=== PATIENT | female | born 1945 | race Caucasian/White ===

== ENCOUNTER 2018-10-05 19:19 | Emergency (ER) | payer OTHER ==
[~2018-10-05] VITALS: Ht 160 cm; Wt 67.6 kg
[~2018-10-05 19:19] MED LIST: AMOX1TAB10 PO; CEPH500C PO; CITA10TA4 PO; DOXY100C2 PO; FLUT1DIS3 IN; HYDR-2761 PO; INSU100I11 SQ; OMEP20CA10 PO; PRAM0.5T5 PO
[2018-10-05 19:20] VITALS: BP 178/75
[2018-10-05] MEDS ORDERED: LACT20SO PO (20:14)
[2018-10-05] MEDS ORDERED: MIDAZOLAM HCL/PF 5 MG/5 ML VIAL. IM ONE (20:15)
--- NOTE | 2018-10-05 20:15 | PHYS DOC ---
Past Medical History Past Medical History: Asthma, Diabetes-Type II, GERD Additional Past Medical Histor: RLS,CHRONIC PAIN Past Surgical History: Hysterectomy, Tonsillectomy Additional Past Surgical Histo: RIGHT ANKLE WITH RODS AND PINS Alcohol Use: None Drug Use: None Adult General Chief Complaint Chief Complaint: CONSTIPATION HPI HPI Patient is a 73 year old female presenting with constipation last bowel was on Tuesday she feels a ball of stool in her rectum. Not on any pain medication she may be low bit dehydrated she tries to drink fluids. Pain is moderate and localized to the rectum worse with trying to have a bowel movement Review of Systems Review of Systems Constitutional: Denies fever or chills [] Respiratory: Denies cough or shortness of breath [] Cardiovascular: No additional information not addressed in HPI [] GI: Positive nausea no vomiting really no abdominal pain just rectal pain : Denies dysuria or hematuria [] Neurologic: Denies headache, focal weakness or sensory changes [] Endocrine: Denies polyuria or polydipsia [] All other systems were reviewed and found to be within normal limits, except as documented in this note. Current Medications Current Medications Current Medications Medications (Trade) Dose Ordered Sig/Steph Start Time Stop Time Status Last Admin Dose Admin Magnesium Citrate (Citroma) 296 ml 1X ONCE 10/05/18 22:00 10/05/18 22:01 DC Midazolam HCl (Versed) 2 mg STK-MED ONCE 10/05/18 20:18 10/05/18 20:19 DC Morphine Sulfate (Morphine Sulfate) 4 mg 1X ONCE 10/05/18 22:00 10/05/18 22:01 DC 10/05/18 22:09 4 MG Ondansetron HCl (Zofran Odt) 4 mg 1X ONCE 10/05/18 22:00 10/05/18 22:01 DC 10/05/18 22:09 4 MG Sodium Monofluorophosphate (Fleet Adult) 133 ml 1X ONCE 10/05/18 21:30 10/05/18 21:31 DC 10/05/18 21:15 133 ML Allergies Allergies Allergies Coded Allergies Type Severity Reaction Last Updated Verified Tetanus Vaccines and Toxoid Allergy Severe SWELLING 08/19/18 Yes wool Allergy Severe RASH 08/19/18 Yes peach Allergy Intermediate Rash 08/22/18 Yes Physical Exam Physical Exam Constitutional: Well developed, well nourished, no acute distress, non-toxic appearance. [] HENT: Normocephalic, atraumatic, bilateral external ears normal, oropharynx moist, no oral exudates, nose normal. [] Eyes: PERRLA, EOMI, conjunctiva normal, no discharge. [] Neck: Normal range of motion, no tenderness, supple, no stridor. [] Pulmonary: Normal respiratory effort no increased work of breathing no obvious chest wall trauma Abdomen: No peritoneal signs mild suprapubic tenderness Rectal exam there is a large rectal fecal impaction this dis impacted by me Skin: Warm, dry, no erythema, no rash. [] Back: No tenderness, no CVA tenderness. [] Neurologic: Alert and oriented X 3, normal motor function, normal sensory function, no focal deficits noted. [] Psychologic: Affect normal, judgement normal, mood normal. [] Current Patient Data Vital Signs Vital Signs Date Time Temp Pulse Resp B/P (MAP) Pulse Ox O2 Delivery O2 Flow Rate FiO2 10/05/18 22:09 99 Room Air 10/05/18 19:20 98.3 90 20 178/75 (109) 98.3 EKG EKG [] Radiology/Procedures Radiology/Procedures [] Course & Med Decision Making Course & Med Decision Making Pertinent Labs and Imaging studies reviewed. (See chart for details) []Rectal impaction status post disimpaction and enema in the emergency room. Gave her said patient tolerated the disimpaction with a moderate degree of difficulty. We then tried a fleets enema which ultimately was successful patient had a very large brown bowel movement lactulose for home encouraged prune juice hydration return as needed for any new or unanticiapated issues. recommended bp f/u one month Dragon Disclaimer Dragon Disclaimer This electronic medical record was generated, in whole or in part, using a voice recognition dictation system. Departure Departure Impression: Primary Impression: Fecal impaction Additional Impression: Elevated blood pressure reading Disposition: 01 HOME, SELF-CARE Condition: STABLE Referrals: HAMMAD VARGAS MD (PCP) Patient Instructions: Constipation, Adult Scripts Lactulose (LACTULOSE) 20 Gm/30 Ml Solution 20 GM PO BID PRN for CONSTIPATION, #1 BOT Prov: TRINIDAD WYATT MD 10/05/18 Problem Qualifiers TRINIDAD WYATT MD Oct 05, 2018 20:15
[2018-10-05] MEDS ORDERED: MIDAZOLAM HCL/PF 2 MG/2 ML VIAL. ONE (20:18)
[2018-10-05] MEDS ORDERED: SODIUM PHOSPHATES 19/7GM 133 ML ENEMA. PR ONE (21:30)
[2018-10-05] MEDS ORDERED: MAGNESIUM CITRATE 296 ML SOLUTION. PO ONE (22:00)
[2018-10-05] MEDS ORDERED: ONDANSETRON ODT 4 MG TAB.RAPDIS. PO ONE (22:00)
[2018-10-05] MEDS ORDERED: MORPHINE SULFATE 4 MG/ML VIAL. IM ONE (22:00)
[2018-10-14] MEDS ORDERED: CLON0.1T PO (10:24)
[2018-10-20] MEDS ORDERED: LINA5TAB PO (08:48)
[2018-11-18] MEDS ORDERED: ONDA4TAB7 PO (09:53)
== END 2018-10-05 22:45 | disposition home or self-care (01) ==
LOC: ER 19:19
DX: K56.41 Fecal impaction (principal); E86.0 Dehydration; R03.0 Elevated blood-pressure reading, without diagnosis of hypertension; J45.909 Unspecified asthma, uncomplicated; K21.9 Gastro-esophageal reflux disease without esophagitis; E11.9 Type 2 diabetes mellitus without complications; G89.29 Other chronic pain; G25.81 Restless legs syndrome; Z90.710 Acquired absence of both cervix and uterus; Z88.7 Allergy status to serum and vaccine; Z88.8 Allergy status to other drugs, medicaments and biological substances; Z91.018 Allergy to other foods
CPT/HCPCS: 96372; 99284; J2250; J2270; Q0162

== ENCOUNTER 2018-12-16 04:14 | Emergency (ER) | payer OTHER ==
[~2018-12-16] VITALS: Ht 152.4 cm; Wt 64.0 kg
[~2018-12-16 04:14] MED LIST changes: +CLON0.1T PO; +LACT20SO PO; +LINA5TAB PO; +ONDA4TAB7 PO
[2018-12-16 04:33] VITALS: BP 182/74
[2018-12-16] MEDS ORDERED: IV NORMAL SALINE 1000ML BAG 1,000 ML IV ONE (05:00)
[2018-12-16] MEDS ORDERED: KETOROLAC 15 MG/ML VIAL. IV ONE (05:00)
[2018-12-16 05:03] LABS: BASO # 0.1 x10^3/uL (0.0-0.2); BASO % 1 % (0-3); EOS # 0.1 x10^3/uL (0.0-0.7); EOS % 1 % (0-3); HEMATOCRIT 29.4 % (36.0-47.0); HEMOGLOBIN 9.4 g/dL (12.0-15.5); LYMPH # 2.3 x10^3/uL (1.0-4.8); LYMPH % 22 % (24-48); MEAN CORPUSCULAR HEMOGLOBIN 27 pg (25-35); MEAN CORPUSCULAR HGB CONC 32 g/dL (31-37); MEAN CORPUSCULAR VOLUME 84 fL (79-100); MONO # 0.6 x10^3/uL (0.0-1.1); MONO % 6 % (0-9); NEUT # 7.4 x10^3uL (1.8-7.7); NEUT % 71 % (31-73); PLATELET COUNT 200 x10^3/uL (140-400); RED BLOOD COUNT 3.51 x10^6/uL (3.50-5.40); RED CELL DISTRIBUTION WIDTH 16.9 % (11.5-14.5); WHITE BLOOD COUNT 10.4 x10^3/uL (4.0-11.0)
[2018-12-16 05:08] LABS: CALCIUM 9.7 mg/dL (8.5-10.1); CREATININE 2.4 mg/dL (0.6-1.0); GFR 19.8; POTASSIUM 5.1 mmol/L (3.5-5.1)
[2018-12-16 05:15] LABS: ALBUMIN 3.2 g/dL (3.4-5.0); ALBUMIN/GLOBULIN RATIO 0.6 (1.0-1.7); MAGNESIUM 2.2 mg/dL (1.8-2.4); TOTAL BILIRUBIN 0.2 mg/dL (0.2-1.0); TOTAL PROTEIN 8.7 g/dL (6.4-8.2)
--- NOTE | 2018-12-16 05:46 | PHYS DOC ---
Past Medical History Past Medical History: Asthma, Diabetes-Type I, GERD Additional Past Medical Histor: RLS,CHRONIC PAIN (MARLENE ESPARZA DO) Past Surgical History: Hysterectomy, Tonsillectomy Additional Past Surgical Histo: RIGHT ANKLE WITH RODS AND PINS, LRG BIG TOE SX (MARLENE ESPARZA DO) Smoking: Quit Greater Than 1 Year Alcohol Use: None Drug Use: None (MARLENE ESPARZA DO) Adult General Chief Complaint Chief Complaint: ABDOMINAL PAIN HPI HPI 73-year-old female presents via EMS with concern for obstruction/fecal impaction times one day. Patient reports she has had problems with constipation in the past. Reports has previously required surgical intervention. Or some associated nausea without vomiting. Reports associated lower abdominal pain. Denies fever or chills. Denies known trauma. (MARLENE ESPARZA DO) Review of Systems Review of Systems Constitutional: Denies fever or chills [] Eyes: Denies change in visual acuity, redness, or eye pain [] HENT: Denies nasal congestion or sore throat [] Respiratory: Denies cough or shortness of breath [] Cardiovascular: Denies chest pain or palpitations GI: Reports abdominal pain, constipation, and nausea; denies vomiting or diarrhea [] : Denies dysuria or hematuria [] Musculoskeletal: Denies back pain or joint pain [] Integument: Denies rash or skin lesions [] Neurologic: Denies headache, focal weakness or sensory changes [] Complete systems were reviewed and found to be within normal limits, except as documented in this note. (MARLENE ESPARZA DO) Current Medications Current Medications Current Medications Medications (Trade) Dose Ordered Sig/Steph Start Time Stop Time Status Last Admin Dose Admin Ceftriaxone Sodium (Rocephin) 1 gm 1X ONCE 12/16/18 07:00 12/16/18 07:01 Info (CONTRAST GIVEN -- Rx MONITORING) 1 each PRN DAILY PRN 12/16/18 06:00 12/18/18 05:59 Iohexol (Omnipaque 240 Mg/ml) 30 ml 1X ONCE 12/16/18 06:00 12/16/18 06:01 DC 12/16/18 06:04 30 ML Ketorolac Tromethamine (Toradol 15mg Vial) 10 mg 1X ONCE 12/16/18 05:00 12/16/18 05:01 DC 12/16/18 04:53 10 MG Sodium Chloride 1,000 ml @ 1,000 mls/hr 1X ONCE 12/16/18 05:00 12/16/18 05:59 DC 12/16/18 04:52 1,000 MLS/HR ([facility]) Allergies Allergies Allergies Coded Allergies Type Severity Reaction Last Updated Verified Tetanus Vaccines and Toxoid Allergy Severe SWELLING 08/19/18 Yes wool Allergy Severe RASH 08/19/18 Yes peach Allergy Intermediate Rash 08/22/18 Yes ([facility]) Physical Exam Physical Exam Constitutional: Well developed, well nourished, uncomfortable, non-toxic appearance. [] HENT: Normocephalic, atraumatic, oropharynx moist Eyes: Conjunctiva normal, no discharge. [] Neck: Normal range of motion, no tenderness, supple, no stridor. [] Cardiovascular: Heart rate regular rhythm, no murmur [] Lungs & Thorax: Bilateral breath sounds clear to auscultation [] Abdomen: Soft, lower abdominal pain on palpation Rectal: Chief I Dispatcher RN, digital rectal exam with large hard stool in rectal vault consistent for fecal impaction Skin: Warm, dry, no erythema, no rash. [] Back: No tenderness, no CVA tenderness. [] Extremities: No tenderness, ROM intact, no edema. [] Neurologic: Alert and oriented X 3, normal motor function, normal sensory function, no focal deficits noted. [] Psychologic: Affect normal, judgement normal, mood normal. [] (ESPARZA,MARLENE Haines DO) Current Patient Data Vital Signs Vital Signs Date Time Temp Pulse Resp B/P (MAP) Pulse Ox O2 Delivery O2 Flow Rate FiO2 12/16/18 04:33 98.1 99 14 182/74 (110) 97 Room Air 98.1 ([facility]) Lab Values Laboratory Tests Test 12/16/18 04:53 12/16/18 05:45 White Blood Count 10.4 x10^3/uL (4.0-11.0) Red Blood Count 3.51 x10^6/uL (3.50-5.40) Hemoglobin 9.4 g/dL (12.0-15.5) L Hematocrit 29.4 % (36.0-47.0) L Mean Corpuscular Volume 84 fL (79-100) Mean Corpuscular Hemoglobin 27 pg (25-35) Mean Corpuscular Hemoglobin Concent 32 g/dL (31-37) Red Cell Distribution Width 16.9 % (11.5-14.5) H Platelet Count 200 x10^3/uL (140-400) Neutrophils (%) (Auto) 71 % (31-73) Lymphocytes (%) (Auto) 22 % (24-48) L Monocytes (%) (Auto) 6 % (0-9) Eosinophils (%) (Auto) 1 % (0-3) Basophils (%) (Auto) 1 % (0-3) Neutrophils # (Auto) 7.4 x10^3uL (1.8-7.7) Lymphocytes # (Auto) 2.3 x10^3/uL (1.0-4.8) Monocytes # (Auto) 0.6 x10^3/uL (0.0-1.1) Eosinophils # (Auto) 0.1 x10^3/uL (0.0-0.7) Basophils # (Auto) 0.1 x10^3/uL (0.0-0.2) Sodium Level 140 mmol/L (136-145) Potassium Level 5.1 mmol/L (3.5-5.1) Chloride Level 103 mmol/L (98-107) Carbon Dioxide Level 28 mmol/L (21-32) Anion Gap 9 (6-14) Blood Urea Nitrogen 54 mg/dL (7-20) H Creatinine 2.4 mg/dL (0.6-1.0) H Estimated GFR (Cockcroft-Gault) 19.8 BUN/Creatinine Ratio 23 (6-20) H Glucose Level 280 mg/dL (70-99) H Calcium Level 9.7 mg/dL (8.5-10.1) Magnesium Level 2.2 mg/dL (1.8-2.4) Total Bilirubin 0.2 mg/dL (0.2-1.0) Aspartate Amino Transferase (AST) 18 U/L (15-37) Alanine Aminotransferase (ALT) 21 U/L (14-59) Alkaline Phosphatase 104 U/L (46-116) Total Protein 8.7 g/dL (6.4-8.2) H Albumin 3.2 g/dL (3.4-5.0) L Albumin/Globulin Ratio 0.6 (1.0-1.7) L Lipase 159 U/L (73-393) Urine Collection Type Unknown Urine Color Yellow Urine Clarity Cloudy Urine pH 6.0 Urine Specific [place] 1.015 Urine Protein Negative mg/dL (NEG-TRACE) Urine Glucose (UA) 250 mg/dL (NEG) Urine Ketones (Stick) Negative mg/dL (NEG) Urine Blood Trace (NEG) Urine Nitrite Positive (NEG) Urine Bilirubin Negative (NEG) Urine Urobilinogen Dipstick 0.2 mg/dL (0.2 mg/dL) Urine Leukocyte Esterase Moderate (NEG) Urine RBC 3-5 /HPF (0-2) Urine WBC >40 /HPF (0-4) Urine Squamous Epithelial Cells Many /LPF Urine Bacteria Many /HPF (0-FEW) Urine Mucus Slight /LPF Laboratory Tests 12/16/18 04:53 Laboratory Tests 12/16/18 04:53 (GUERLINE CHRISTIANSON DO) EKG EKG [] (MARLENE ESPARZA DO) Radiology/Procedures Radiology/Procedures [] (MARLENE ESPARZA DO) Radiology/Procedures EXAM: CT Abdomen and Pelvis without IV contrast CLINICAL HISTORY: lower abdominal pain, constipation COMPARISON: 10/13/2018, 08/19/2018 TECHNIQUE: Helical CT of the abdomen and pelvis without intravenous contrast. Axial, coronal and sagittal reformatted images were generated. PQRS compliance statement - One or more of the following individualized dose reduction techniques were utilized for this study: 1. Automated exposure control 2. Adjustment of the mA and/or kV according to patient size 3. Use of iterative reconstruction technique FINDINGS: Lack of intravenous contrast limits evaluation of solid organs, vasculature, and lymph nodes. Lower chest: Subpleural reticular opacities bilaterally likely scarring/atelectasis. Coronary artery calcifications are seen. Moderate hiatal hernia. Abdomen and Pelvis: No focal liver lesion. Gallbladder is mildly contracted but otherwise unremarkable. No biliary ductal dilatation. Spleen is unremarkable. Adrenals are normal.Pancreas is unremarkable. No focal renal lesion. No definite renal tract calculus. No hydronephrosis. No hydroureter. Bladder is moderately distended. Moderate colonic stool content is seen. The appendix is normal. No small or large bowel dilatation to suggest bowel obstruction. Dense aortobiiliac calcifications are seen. Bones: Height loss of the T12 vertebral body stable to 10/13/2018. IMPRESSION: 1. Moderate colonic stool content is seen. No evidence for bowel obstruction. 2. No evidence for acute appendicitis or acute cholecystitis. 3. Dense atherosclerotic calcifications of the aorta and main branches. 4. Moderate-sized hiatal hernia. (GUERLINE CHRISTIANSON DO) Course & Med Decision Making Course & Med Decision Making Patient presents with lower abdominal pain with history/concern for fecal impaction vs obstruction. Prior episodes required surgical intervention per patient. Abdomen tender but non-peritoneal. Rectal exam with large fecal impaction noted. Fecal disimpaction successfully performed. Labs obtained and posted to chart. Chronic renal insufficiency noted. UA with signs of infection. Empiric antibiotics given. IVF hydration given. CT abd/pelvis pending. Sign out given to Dr. Christianson for further evaluation and final disposition. Discussed current findings and plan with patient, who acknowledges understanding and agreement. (MARLEEN ESPARZA DO) Course & Med Decision Making Dr. Christianson's note Received patient at 6 AM, agree with previous H&P. On reevaluation at 6:30, patient feeling much better. CT results had been returned as noted above. Discussed findings and plan with patient who voiced understanding. All questions were answered. (GUERLINE CHRISTIANSON DO) Dragon Disclaimer Dragon Disclaimer This electronic medical record was generated, in whole or in part, using a voice recognition dictation system. (MARLENE ESPARZA DO) Departure Departure Impression: Primary Impression: Abdominal pain Additional Impressions: Fecal impaction Urinary tract infection Disposition: 01 HOME, SELF-CARE Condition: IMPROVED Referrals: HAMMAD VARGAS MD (PCP) Follow-up in 2 days Patient Instructions: Constipation, Adult Additional Instructions: Drink plenty of fluids. Increase fiber in your diet. One way to do this is eating plenty of fresh fruits and vegetables. Also eat a cereal with "bran" or "fiber" in the name. Take your medication as prescribed. Follow-up with your regular doctor in 2 business days. Return to the ER if worsening pain or any other concerns. Scripts Sulfamethoxazole/Trimethoprim (BACTRIM DS TABLET) 1 Each Tablet 1 TAB PO BID, #14 TAB Prov: GUERLINE CHRISTIANSON DO 12/16/18 Hyoscyamine Sulfate (LEVSIN) 0.125 Mg Tablet 0.125 MG PO QID, #30 TAB Prov: GUERLINE CHRISTIANSON DO 12/16/18 Lactulose (LACTULOSE) 20 Gm/30 Ml Solution 20 GM PO BID, #1 BOT Prov: LIBIAGUERLINE DO 12/16/18 Problem Qualifiers Primary Impression: Abdominal pain Abdominal location: lower abdomen, unspecified Qualified Codes: R10.30 - Lower abdominal pain, unspecified Additional Impressions: Urinary tract infection Urinary tract infection type: acute cystitis Hematuria presence: with hematuria Qualified Codes: N30.01 - Acute cystitis with hematuria MARLENE ESPARZA DO Dec 16, 2018 05:46 GUERLINE CHRISTIANSON DO Dec 16, 2018 06:37
[2018-12-16 05:51] LABS: BILIRUBIN,URINE NEGATIVE (NEG); CLARITY,URINE CLOUDY; COLOR,URINE YELLOW; NITRITE,URINE POSITIVE (NEG); PROTEIN,URINE NEGATIVE (NEG-TRACE); UROBILINOGEN,URINE 0.2 mg/dL (0.2 mg/dL)
[2018-12-16] MEDS ORDERED: IOHEXOL 240 MG/ML 50ML VIAL. PO ONE (06:00)
[2018-12-16] MEDS ORDERED: CONTRAST GIVEN. MC PRN (06:00)
[2018-12-16 06:11] LABS: BACTERIA,URINE MANY /HPF (0-FEW); SQUAMOUS EPITHELIAL CELL,UR MANY /LPF
[2018-12-16 06:12] LABS: WBC,URINE >40 /HPF (0-4)
--- NOTE | 2018-12-16 06:21 | RAD ---
EXAM: CT Abdomen and Pelvis without IV contrast CLINICAL HISTORY: lower abdominal pain, constipation COMPARISON: 10/13/2018, 08/19/2018 TECHNIQUE: Helical CT of the abdomen and pelvis without intravenous contrast. Axial, coronal and sagittal reformatted images were generated. PQRS compliance statement - One or more of the following individualized dose reduction techniques were utilized for this study: 1. Automated exposure control 2. Adjustment of the mA and/or kV according to patient size 3. Use of iterative reconstruction technique FINDINGS: Lack of intravenous contrast limits evaluation of solid organs, vasculature, and lymph nodes. Lower chest: Subpleural reticular opacities bilaterally likely scarring/atelectasis. Coronary artery calcifications are seen. Moderate hiatal hernia. Abdomen and Pelvis: No focal liver lesion. Gallbladder is mildly contracted but otherwise unremarkable. No biliary ductal dilatation. Spleen is unremarkable. Adrenals are normal.Pancreas is unremarkable. No focal renal lesion. No definite renal tract calculus. No hydronephrosis. No hydroureter. Bladder is moderately distended. Moderate colonic stool content is seen. The appendix is normal. No small or large bowel dilatation to suggest bowel obstruction. Dense aortobiiliac calcifications are seen. Bones: Height loss of the T12 vertebral body stable to 10/13/2018. IMPRESSION: 1. Moderate colonic stool content is seen. No evidence for bowel obstruction. 2. No evidence for acute appendicitis or acute cholecystitis. 3. Dense atherosclerotic calcifications of the aorta and main branches. 4. Moderate-sized hiatal hernia. Electronically signed by: Narendra Greer MD (12/16/2018 6:18 AM) [id number]
[2018-12-16] MEDS ORDERED: LACT20SO PO (06:37)
[2018-12-16] MEDS ORDERED: HYOS0.1264 PO (06:37)
[2018-12-16] MEDS ORDERED: SULF1TAB24 PO (06:37)
[2018-12-16] MEDS ORDERED: cefTRIAXone IV Push 1 GM VIAL. IVP ONE (07:00)
== END 2018-12-16 06:45 | disposition home or self-care (01) ==
LOC: ER 04:14
DX: K56.41 Fecal impaction (principal); N39.0 Urinary tract infection, site not specified; Z88.7 Allergy status to serum and vaccine; Z91.018 Allergy to other foods; Z91.048 Other nonmedicinal substance allergy status; J45.909 Unspecified asthma, uncomplicated; E10.9 Type 1 diabetes mellitus without complications; G89.29 Other chronic pain; K21.9 Gastro-esophageal reflux disease without esophagitis; Z87.891 Personal history of nicotine dependence; Z90.710 Acquired absence of both cervix and uterus
CPT/HCPCS: 36415; 74176; 80053; 81001; 83690; 83735; 85025; 87086; 99284; J1885; J7030; Q9966; 87186

== ENCOUNTER 2018-12-18 06:35 | Emergency (ER) | payer OTHER ==
[~2018-12-18] VITALS: Ht 152.4 cm; Wt 64.0 kg
[~2018-12-18 06:35] MED LIST changes: +HYOS0.1264 PO; +SULF1TAB24 PO
[2018-12-18 07:18] LABS: BASO % 1 % (0-3); CALCIUM 9.3 mg/dL (8.5-10.1); CREATININE 2.5 mg/dL (0.6-1.0); EOS # 0.1 x10^3/uL (0.0-0.7); EOS % 1 % (0-3); GFR 18.9; HEMATOCRIT 26.9 % (36.0-47.0); HEMOGLOBIN 8.4 g/dL (12.0-15.5); LYMPH # 2.8 x10^3/uL (1.0-4.8); LYMPH % 31 % (24-48); MEAN CORPUSCULAR HEMOGLOBIN 26 pg (25-35); MEAN CORPUSCULAR HGB CONC 31 g/dL (31-37); MEAN CORPUSCULAR VOLUME 84 fL (79-100); MONO # 0.5 x10^3/uL (0.0-1.1); MONO % 6 % (0-9); NEUT # 5.6 x10^3uL (1.8-7.7); NEUT % 62 % (31-73); PLATELET COUNT 192 x10^3/uL (140-400); POTASSIUM 4.6 mmol/L (3.5-5.1); RED BLOOD COUNT 3.22 x10^6/uL (3.50-5.40); RED CELL DISTRIBUTION WIDTH 16.4 % (11.5-14.5)
[2018-12-18 07:23] LABS: ALBUMIN 2.8 g/dL (3.4-5.0); ALBUMIN/GLOBULIN RATIO 0.6 (1.0-1.7); MAGNESIUM 2.1 mg/dL (1.8-2.4); TOTAL BILIRUBIN 0.2 mg/dL (0.2-1.0); TOTAL PROTEIN 7.6 g/dL (6.4-8.2)
--- NOTE | 2018-12-18 07:23 | EKG ---
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
--- NOTE | 2018-12-18 07:25 | PHYS DOC ---
Past Medical History Past Medical History: Asthma, Diabetes-Type I, GERD Additional Past Medical Histor: RLS,CHRONIC PAIN Past Surgical History: Hysterectomy, Tonsillectomy Additional Past Surgical Histo: RIGHT ANKLE WITH RODS AND PINS, LRG BIG TOE SX Alcohol Use: None Drug Use: None Adult General Chief Complaint Chief Complaint: NEAR SYNCOPE HPI HPI Patient is a 73 year old female who brought in by EMS because of syncopal episode. Patient states she had history of chronic constipation and her physician started a new laxative. Patient states she had a hard bowel movement this morning and does not remember what happened to her. Patient's called 911 because she lost her consciousness and had a fall with injury to her right forehead. Patient denies chest pain, shortness of breath, focal neuro deficit, nausea and vomiting. Patient complaining of pain in right side of her forehead and rated her pain 7/10. Patient states she had episodes of syncopal episode with constipation and taking laxative previously. Patient is allergic to tetanus vaccination. EMS reported that patient had blood pressure of 90s that gradually improved without IV fluid. Patient had blood sugar of 186 reports that by EMS. Review of Systems Review of Systems Constitutional: Denies fever or chills [] Eyes: Denies change in visual acuity, redness, or eye pain [] HENT: Denies nasal congestion or sore throat [] Respiratory: Denies cough or shortness of breath [] Cardiovascular: No additional information not addressed in HPI [] GI: Denies abdominal pain, nausea, vomiting, bloody stools or diarrhea, reports constipation [] : Denies dysuria or hematuria [] Musculoskeletal: Denies back pain or joint pain [] Integument: Denies rash or skin lesions [] Neurologic: Reports headache, denies focal weakness or sensory changes [] Endocrine: Denies polyuria or polydipsia [] All other systems were reviewed and found to be within normal limits, except as documented in this note. Current Medications Current Medications Current Medications Medications (Trade) Dose Ordered Sig/Steph Start Time Stop Time Status Last Admin Dose Admin Ciprofloxacin/ Dextrose 200 ml @ 200 mls/hr 1X ONCE 12/18/18 08:30 12/18/18 09:29 Allergies Allergies Allergies Coded Allergies Type Severity Reaction Last Updated Verified Tetanus Vaccines and Toxoid Allergy Severe SWELLING 08/19/18 Yes wool Allergy Severe RASH 08/19/18 Yes peach Allergy Intermediate Rash 08/22/18 Yes Physical Exam Physical Exam Constitutional: Well developed, well nourished, mild distress, non-toxic appearance. [] HENT: Normocephalic, right forehead contusion and hematoma 5 x 5 cm, bilateral external ears normal, oropharynx moist, no oral exudates, nose normal. [] Eyes: PERRLA, EOMI, conjunctiva normal, no discharge. [] Neck: Normal range of motion, no tenderness, supple, no stridor. [] Cardiovascular:Heart rate regular rhythm, no murmur [] Lungs & Thorax: Bilateral breath sounds clear to auscultation [] Abdomen: Bowel sounds normal, soft, no tenderness, no masses, no pulsatile masses. [] Skin: Warm, dry, no erythema, no rash. [] Back: No tenderness, no CVA tenderness. [] Extremities: No tenderness, no cyanosis, no clubbing, ROM intact, no edema. [] Neurologic: Alert and oriented X 3, normal motor function, normal sensory function, no focal deficits noted. [] Psychologic: Affect normal, judgement normal, mood normal. [] Current Patient Data Vital Signs Vital Signs Date Time Temp Pulse Resp B/P (MAP) Pulse Ox O2 Delivery O2 Flow Rate FiO2 12/18/18 06:37 97.6 97 20 129/63 (85) 100 Room Air 97.6 Lab Values Laboratory Tests Test 12/18/18 07:00 12/18/18 07:35 White Blood Count 9.0 x10^3/uL (4.0-11.0) Red Blood Count 3.22 x10^6/uL (3.50-5.40) L Hemoglobin 8.4 g/dL (12.0-15.5) L Hematocrit 26.9 % (36.0-47.0) L Mean Corpuscular Volume 84 fL (79-100) Mean Corpuscular Hemoglobin 26 pg (25-35) Mean Corpuscular Hemoglobin Concent 31 g/dL (31-37) Red Cell Distribution Width 16.4 % (11.5-14.5) H Platelet Count 192 x10^3/uL (140-400) Neutrophils (%) (Auto) 62 % (31-73) Lymphocytes (%) (Auto) 31 % (24-48) Monocytes (%) (Auto) 6 % (0-9) Eosinophils (%) (Auto) 1 % (0-3) Basophils (%) (Auto) 1 % (0-3) Neutrophils # (Auto) 5.6 x10^3uL (1.8-7.7) Lymphocytes # (Auto) 2.8 x10^3/uL (1.0-4.8) Monocytes # (Auto) 0.5 x10^3/uL (0.0-1.1) Eosinophils # (Auto) 0.1 x10^3/uL (0.0-0.7) Basophils # (Auto) 0.0 x10^3/uL (0.0-0.2) Sodium Level 145 mmol/L (136-145) Potassium Level 4.6 mmol/L (3.5-5.1) Chloride Level 105 mmol/L (98-107) Carbon Dioxide Level 27 mmol/L (21-32) Anion Gap 13 (6-14) Blood Urea Nitrogen 46 mg/dL (7-20) H Creatinine 2.5 mg/dL (0.6-1.0) H Estimated GFR (Cockcroft-Gault) 18.9 BUN/Creatinine Ratio 18 (6-20) Glucose Level 175 mg/dL (70-99) H Calcium Level 9.3 mg/dL (8.5-10.1) Magnesium Level 2.1 mg/dL (1.8-2.4) Total Bilirubin 0.2 mg/dL (0.2-1.0) Aspartate Amino Transferase (AST) 13 U/L (15-37) L Alanine Aminotransferase (ALT) 15 U/L (14-59) Alkaline Phosphatase 86 U/L (46-116) Troponin I Quantitative < 0.017 ng/mL (0.000-0.055) Total Protein 7.6 g/dL (6.4-8.2) Albumin 2.8 g/dL (3.4-5.0) L Albumin/Globulin Ratio 0.6 (1.0-1.7) L Urine Collection Type U cath Urine Color Yellow Urine Clarity Clear Urine pH 6.5 Urine Specific [place] 1.015 Urine Protein Negative mg/dL (NEG-TRACE) Urine Glucose (UA) 100 mg/dL (NEG) Urine Ketones (Stick) Negative mg/dL (NEG) Urine Blood Negative (NEG) Urine Nitrite Negative (NEG) Urine Bilirubin Negative (NEG) Urine Urobilinogen Dipstick 0.2 mg/dL (0.2 mg/dL) Urine Leukocyte Esterase Small (NEG) Urine RBC 1-2 /HPF (0-2) Urine WBC 5-10 /HPF (0-4) Urine Squamous Epithelial Cells Few /LPF Urine Bacteria Few /HPF (0-FEW) Urine Mucus Slight /LPF Laboratory Tests 12/18/18 07:00 Laboratory Tests 12/18/18 07:00 EKG EKG KG interpreted by me. EKG at 0648 showed normal sinus rhythm at rate of 96, normal FL and QT intervals, poor R-wave progress and anteroseptal leads, no acute ST and T-wave abnormalities. Radiology/Procedures Radiology/Procedures [facility] [address] [place] [address] IMAGING REPORT Signed PATIENT: ALFREDO MATAMOROS ACCOUNT: [id number] : 1945 LOCATION: ER AGE: 73 SEX: F EXAM STATUS: REG ER ORD. PHYSICIAN: JENNIFER SHEIKH MD REASON: syncope and fall PROCEDURE: CT HEAD AND CERVICAL SPINE WO EXAM: CT HEAD WITHOUT IV CONTRAST CLINICAL HISTORY: syncope today, fall, head injury. COMPARISON: None. TECHNIQUE: Routine CT of the head without contrast. Soft tissues and bone windows were reviewed. PQRS compliance statement - One or more of the following individualized dose reduction techniques were utilized for this study: 1. Automated exposure control 2. Adjustment of the mA and/or kV according to patient size 3. Use of iterative reconstruction technique FINDINGS: There is no evidence of hemorrhage, mass or extra-axial fluid collection. Roman-white differentiation is maintained with no evidence of edema. There are non-specific foci of hypodensity in the periventricular and subcortical white matter of the cerebral hemispheres. There is no mass effect or shift of the intracranial structures. The ventricles and cerebral sulci are prominent for the patients stated age consistent with generalized cerebral volume loss. The cerebellum and brainstem are unremarkable. The calvarium demonstrates no evidence of fracture or focal lesion. There is normal aeration of the visualized paranasal sinuses and mastoid air cells. The visualized portions of the orbits are normal. Atherosclerotic calcifications of the intracranial internal carotid and vertebral arteries is seen. Focal soft tissue swelling overlying the right frontal region. IMPRESSION: 1. No evidence for acute intracranial process. 2. Subcortical and periventricular regions of hypoattenuation likely changes of chronic small vessel disease. 3. Focal soft tissue swelling overlying the right frontal region without subjacent osseous abnormality. EXAM: CT CERVICAL SPINE WITHOUT IV CONTRAST CLINICAL HISTORY: syncope today, fall, head injury. COMPARISON: None available. TECHNIQUE: Helical CT of the cervical spine was performed. Axial, coronal and sagittal reformatted images were also performed. PQRS compliance statement - One or more of the following individualized dose reduction techniques were utilized for this study: 1. Automated exposure control 2. Adjustment of the mA and/or kV according to patient size 3. Use of iterative reconstruction technique FINDINGS: Diffusely decreased bone mineral density limits evaluation for nondisplaced fracture. Within these constraints no definite fracture is seen. Atlantodental degenerative changes are seen. Mild C2-3, C3-4, moderate C4-5, C5-6, C6-7 disc height loss. Diffuse facet degenerative changes are seen. Mild straightening of the normal cervical lordosis. No significant spondylolisthesis. Craniocervical junction is grossly unremarkable. Prevertebral soft tissues are grossly unremarkable. C2-C3: No significant central canal stenosis or neural foraminal narrowing. C3-C4: Mild uncovertebral hypertrophy results in mild bilateral neural foraminal narrowing. No significant central canal stenosis C4-C5: Posterior disc osteophyte complex, eccentric to the right results in mild central canal stenosis and mild bilateral neural foraminal narrowing. C5-C6: Posterior disc osteophyte complex with facet degenerative changes and ligamentum flavum hypertrophy results in mild to moderate central canal stenosis, and mild left neural foraminal narrowing. C6-C7: Posterior disc osteophyte complex with facet degenerative changes results in mild central canal stenosis, moderate left neural foraminal narrowing and mild right neural foraminal narrowing. C7-T1: No significant central canal stenosis or neural foraminal narrowing. IMPRESSION: 1. Within the constraints of osteopenia, no evidence for acute fracture or subluxation. 2. Multilevel degenerative changes as described in detail above. Electronically signed by: Narendra Silva MD (12/18/2018 7:50 AM) [facility] DICTATED and SIGNED BY: NARENDRA SILVA MD DATE: 12/18/18 0743 Course & Med Decision Making Course & Med Decision Making Pertinent Labs and Imaging studies reviewed. (See chart for details) Evaluation of patient in ER showed 72-year-old female patient brought in because of a vasovagal syncope after taking laxative and having constipation. Patient had history of previous episodes of vasovagal syncope source after taking laxative. Patient is on narcotic pain medication and Levsin. Labs showed chronic anemia and renal insufficiency without new changes. UA showed 10 WBCs that improved from previous UA with more than 40 WBC with urine culture culture of Pseudomonas without starting an antibiotic. Patient primary care physician Dr. Abarca informed at 0810 regarding chronic problem and he commented to admit patient for taking care of chronic anemia and renal insufficiency and treatment of UTI with pseudomonas. IV Cipro was ordered. Dragon Disclaimer Dragon Disclaimer This electronic medical record was generated, in whole or in part, using a voice recognition dictation system. Departure Departure Impression: Primary Impression: Vasovagal syncope Additional Impressions: Urinary retention Anemia Renal insufficiency Constipation due to opioid therapy Uncontrolled diabetes mellitus Hypoalbuminemia Facial contusion Disposition: ADMITTED INPATIENT (at 0811) Admitting Physician: Hammad Abarca (accepted admission at 0810) Condition: IMPROVED Referrals: HAMMAD ABARCA MD (PCP) Problem Qualifiers Additional Impressions: Anemia Anemia type: unspecified type Qualified Codes: D64.9 - Anemia, unspecified Uncontrolled diabetes mellitus Diabetes mellitus type: type 2 Glycemic state: with hyperglycemia Qualified Codes: E11.65 - Type 2 diabetes mellitus with hyperglycemia Facial contusion Encounter type: subsequent encounter Qualified Codes: S00.83XD - Contusion of other part of head, subsequent encounter JENNIFER SHEIKH MD Dec 18, 2018 07:25
--- NOTE | 2018-12-18 07:52 | RAD ---
EXAM: CT HEAD WITHOUT IV CONTRAST CLINICAL HISTORY: syncope today, fall, head injury. COMPARISON: None. TECHNIQUE: Routine CT of the head without contrast. Soft tissues and bone windows were reviewed. PQRS compliance statement - One or more of the following individualized dose reduction techniques were utilized for this study: 1. Automated exposure control 2. Adjustment of the mA and/or kV according to patient size 3. Use of iterative reconstruction technique FINDINGS: There is no evidence of hemorrhage, mass or extra-axial fluid collection. Roman-white differentiation is maintained with no evidence of edema. There are non-specific foci of hypodensity in the periventricular and subcortical white matter of the cerebral hemispheres. There is no mass effect or shift of the intracranial structures. The ventricles and cerebral sulci are prominent for the patients stated age consistent with generalized cerebral volume loss. The cerebellum and brainstem are unremarkable. The calvarium demonstrates no evidence of fracture or focal lesion. There is normal aeration of the visualized paranasal sinuses and mastoid air cells. The visualized portions of the orbits are normal. Atherosclerotic calcifications of the intracranial internal carotid and vertebral arteries is seen. Focal soft tissue swelling overlying the right frontal region. IMPRESSION: 1. No evidence for acute intracranial process. 2. Subcortical and periventricular regions of hypoattenuation likely changes of chronic small vessel disease. 3. Focal soft tissue swelling overlying the right frontal region without subjacent osseous abnormality. EXAM: CT CERVICAL SPINE WITHOUT IV CONTRAST CLINICAL HISTORY: syncope today, fall, head injury. COMPARISON: None available. TECHNIQUE: Helical CT of the cervical spine was performed. Axial, coronal and sagittal reformatted images were also performed. PQRS compliance statement - One or more of the following individualized dose reduction techniques were utilized for this study: 1. Automated exposure control 2. Adjustment of the mA and/or kV according to patient size 3. Use of iterative reconstruction technique FINDINGS: Diffusely decreased bone mineral density limits evaluation for nondisplaced fracture. Within these constraints no definite fracture is seen. Atlantodental degenerative changes are seen. Mild C2-3, C3-4, moderate C4-5, C5-6, C6-7 disc height loss. Diffuse facet degenerative changes are seen. Mild straightening of the normal cervical lordosis. No significant spondylolisthesis. Craniocervical junction is grossly unremarkable. Prevertebral soft tissues are grossly unremarkable. C2-C3: No significant central canal stenosis or neural foraminal narrowing. C3-C4: Mild uncovertebral hypertrophy results in mild bilateral neural foraminal narrowing. No significant central canal stenosis C4-C5: Posterior disc osteophyte complex, eccentric to the right results in mild central canal stenosis and mild bilateral neural foraminal narrowing. C5-C6: Posterior disc osteophyte complex with facet degenerative changes and ligamentum flavum hypertrophy results in mild to moderate central canal stenosis, and mild left neural foraminal narrowing. C6-C7: Posterior disc osteophyte complex with facet degenerative changes results in mild central canal stenosis, moderate left neural foraminal narrowing and mild right neural foraminal narrowing. C7-T1: No significant central canal stenosis or neural foraminal narrowing. IMPRESSION: 1. Within the constraints of osteopenia, no evidence for acute fracture or subluxation. 2. Multilevel degenerative changes as described in detail above. Electronically signed by: Narendra Greer MD (12/18/2018 7:50 AM) [facility]
[2018-12-18 07:53] LABS: BILIRUBIN,URINE NEGATIVE (NEG); CLARITY,URINE CLEAR; COLOR,URINE YELLOW; NITRITE,URINE NEGATIVE (NEG); PH,URINE 6.5; PROTEIN,URINE NEGATIVE (NEG-TRACE); UROBILINOGEN,URINE 0.2 mg/dL (0.2 mg/dL)
[2018-12-18 07:58] LABS: SQUAMOUS EPITHELIAL CELL,UR FEW /LPF
[2018-12-18 07:59] LABS: BACTERIA,URINE FEW /HPF (0-FEW)
[2018-12-18] MEDS ORDERED: CIPROFLOXACIN 400MG PREMIX 200 ML IV ONE (08:30)
[2018-12-18 10:20] VITALS: BP 159/67
== END 2018-12-18 11:03 | disposition left against medical advice (07) ==
LOC: ER 06:35 → UNDOADMIN 08:15 → 6 SOUTH 08:15 → ER 11:03
DX: S00.83XA Contusion of other part of head, initial encounter (principal); K59.03 Drug induced constipation; T40.2X5A Adverse effect of other opioids, initial encounter; R55 Syncope and collapse; E11.65 Type 2 diabetes mellitus with hyperglycemia; D64.9 Anemia, unspecified; E88.09 Other disorders of plasma-protein metabolism, not elsewhere classified; R33.9 Retention of urine, unspecified; N28.9 Disorder of kidney and ureter, unspecified; K21.9 Gastro-esophageal reflux disease without esophagitis; J45.909 Unspecified asthma, uncomplicated; G89.29 Other chronic pain; Z88.7 Allergy status to serum and vaccine; Z91.018 Allergy to other foods; Z91.048 Other nonmedicinal substance allergy status; W18.39XA Other fall on same level, initial encounter; Y93.89 Activity, other specified; Y99.8 Other external cause status; Y92.89 Other specified places as the place of occurrence of the external cause
CPT/HCPCS: 36415; 70450; 72125; 80053; 81001; 83735; 83880; 84484; 85025; 87086; 93005; 99284-25

== ENCOUNTER 2018-12-23 07:35 | Emergency (ER) | payer OTHER ==
[~2018-12-23] VITALS: Ht 152.4 cm; Wt 64.0 kg
--- NOTE | 2018-12-23 09:02 | PHYS DOC ---
Past Medical History Past Medical History: Asthma, Diabetes-Type I, GERD Additional Past Medical Histor: RLS,CHRONIC PAIN Past Surgical History: Hysterectomy, Tonsillectomy Additional Past Surgical Histo: RIGHT ANKLE WITH RODS AND PINS, LRG BIG TOE SX Alcohol Use: None Drug Use: None Adult General Chief Complaint Chief Complaint: MECHANICAL FALL HPI HPI Patient is a 73 year old female who presents with head and neck pain. She has had several mechanical trip and falls over the past several days. No loss of consciousness or if there was one was at most for several seconds. No syncopal episode. Today she has bleeding from the back of her head from the fall. She is allergic to the tetanus vaccine and was told never to have one again because of the severe reaction. Patient denies any dizziness or nausea or vomiting. Nothing makes the symptoms better or worse[] Review of Systems Review of Systems Constitutional: Denies fever or chills [] Eyes: Denies change in visual acuity, redness, or eye pain [] HENT: Denies nasal congestion or sore throat [] Respiratory: Denies cough or shortness of breath [] Cardiovascular: No chest pain or palpitations[] GI: Denies abdominal pain, nausea, vomiting, bloody stools or diarrhea [] : Denies dysuria or hematuria [] Musculoskeletal: Denies back pain or joint pain [] Integument: Denies rash or skin lesions [] Neurologic: Denies headache, focal weakness or sensory changes [] Endocrine: Denies polyuria or polydipsia [] All other systems were reviewed and found to be within normal limits, except as documented in this note. Allergies Allergies Allergies Coded Allergies Type Severity Reaction Last Updated Verified Tetanus Vaccines and Toxoid Allergy Severe SWELLING 08/19/18 Yes wool Allergy Severe RASH 08/19/18 Yes peach Allergy Intermediate Rash 08/22/18 Yes Physical Exam Physical Exam Constitutional: Well developed, well nourished, no acute distress, non-toxic appearance. [] HENT: Approximately 1 cm diameter abrasion to her occipital region just left of center. No suturable wound noted. There is bruising noted around her right eye in the frontal region, bilateral external ears normal, and TMs are clear, no blood no fluid, oropharynx moist, no oral exudates, nose normal. [] Eyes: PERRLA, EOMI, conjunctiva normal, no discharge. [] Neck: Normal range of motion, no midline tenderness, supple, no stridor. Tenderness in bilateral paraspinal musculature [] Cardiovascular:Heart rate regular rhythm, no murmur [] Lungs & Thorax: Bilateral breath sounds clear to auscultation [] Abdomen: Bowel sounds normal, soft, no tenderness, no masses, no pulsatile masses. [] Skin: Warm, dry, no erythema, no rash. [] Back: No tenderness, no CVA tenderness. [] Extremities: No tenderness, no cyanosis, no clubbing, ROM intact, no edema. [] Neurologic: Alert and oriented X 3, normal motor function, normal sensory function, no focal deficits noted. [] Psychologic: Affect normal, judgement normal, mood normal. [] Current Patient Data Vital Signs Vital Signs Date Time Temp Pulse Resp B/P (MAP) Pulse Ox O2 Delivery O2 Flow Rate FiO2 12/23/18 07:56 98.3 99 16 137/65 (89) 99 Room Air 98.3 Lab Values Laboratory Tests Test 12/23/18 08:55 White Blood Count 10.1 x10^3/uL (4.0-11.0) Red Blood Count 3.42 x10^6/uL (3.50-5.40) L Hemoglobin 9.0 g/dL (12.0-15.5) L Hematocrit 28.4 % (36.0-47.0) L Mean Corpuscular Volume 83 fL (79-100) Mean Corpuscular Hemoglobin 26 pg (25-35) Mean Corpuscular Hemoglobin Concent 32 g/dL (31-37) Red Cell Distribution Width 17.0 % (11.5-14.5) H Platelet Count 197 x10^3/uL (140-400) Neutrophils (%) (Auto) 71 % (31-73) Lymphocytes (%) (Auto) 21 % (24-48) L Monocytes (%) (Auto) 7 % (0-9) Eosinophils (%) (Auto) 1 % (0-3) Basophils (%) (Auto) 1 % (0-3) Neutrophils # (Auto) 7.1 x10^3uL (1.8-7.7) Lymphocytes # (Auto) 2.1 x10^3/uL (1.0-4.8) Monocytes # (Auto) 0.7 x10^3/uL (0.0-1.1) Eosinophils # (Auto) 0.1 x10^3/uL (0.0-0.7) Basophils # (Auto) 0.1 x10^3/uL (0.0-0.2) Sodium Level 144 mmol/L (136-145) Potassium Level 4.8 mmol/L (3.5-5.1) Chloride Level 104 mmol/L (98-107) Carbon Dioxide Level 30 mmol/L (21-32) Anion Gap 10 (6-14) Blood Urea Nitrogen 39 mg/dL (7-20) H Creatinine 2.2 mg/dL (0.6-1.0) H Estimated GFR (Cockcroft-Gault) 21.9 Glucose Level 176 mg/dL (70-99) H Calcium Level 9.4 mg/dL (8.5-10.1) Laboratory Tests 12/23/18 08:55 Laboratory Tests 12/23/18 08:55 EKG EKG [] Radiology/Procedures Radiology/Procedures CT HEAD AND CERVICAL SPINE WO Indication: FALL WITH HEAD INJURY AND NECK PAIN X TODAY
PT HIT BACK OF HEAD
Exposure: One or more of the following individualized dose reduction techniques were utilized for this examination: 1. Automated exposure control 2. Adjustment of the mA and/or kV according to patient size 3. Use of iterative reconstruction technique. Technique: Standard imaging without intravenous contrast. FINDINGS: Comparison with study of December 18. Head: Intracranial arterial calcification. No acute intracranial hemorrhage, mass effect, midline shift or abnormal extra-axial fluid collection mild low-density in the white matter bilaterally, a nonspecific finding, but which is commonly due to chronic small vessel ischemic disease in a patient of this age. Generalized atrophy. Orbits unremarkable. There is mild scalp swelling in the left posterior parietal region, with a small amount of scalp air, presumably indicative of a laceration.. Partially visualized sinuses are clear. No evidence of a depressed skull fracture. IMPRESSION: No acute intracranial hemorrhage or mass effect. Probable small left parietal scalp laceration. Cervical spine Ring of C1 is intact. Cervico-occipital junction is intact. C1-C2 is symmetric. Diffuse bone demineralization. No definite acute fracture. Vertebral body height is maintained. No significant subluxation. Multilevel degenerative spondylosis with variable central spinal and neural foraminal stenosis. Degenerative changes at the facet joints without perched or locked facet. Partially visualized periodontal disease. Periapical lucencies at the left maxilla. Prevertebral soft tissues demonstrate no swelling or hematoma. Lung apices grossly clear. Visualized aorta calcified. IMPRESSION: 1. Degenerative spondylosis. 2. Bone demineralization, no definite acute fracture or traumatic subluxation. 3. Periodontal disease.[] Course & Med Decision Making Course & Med Decision Making Pertinent Labs and Imaging studies reviewed. (See chart for details) ED course and medical decision making: Patient arrived, was placed in bed, and tolerated exam well. She was a difficult patient to establish an IV so laboratory did a "straight stick" to obtain laboratory samples. She was then transported to and from CT with any complications. After the return of laboratory and imaging findings these were discussed with the patient who voiced understanding. All questions were answered. Patient was given acetaminophen for the head pain. She was discharged in improved condition. Medical decision making: There does not appear to be a skull fracture, subdural , or epidural bleed. While patient is anemic, her blood count is in the mid range of 2 previous visits to the emergency department earlier this month. Her electrolytes likewise are in a reasonable level for her given her known renal disease which appears stable. No evidence of this being syncope or acute coronary syndrome. No suturable wound noted.[] Dragon Disclaimer Dragon Disclaimer This electronic medical record was generated, in whole or in part, using a voice recognition dictation system. Departure Departure Impression: Primary Impression: Fall Additional Impressions: Closed head injury Scalp abrasion Disposition: 01 HOME, SELF-CARE Condition: IMPROVED Referrals: HAMMAD VARGAS MD (PCP) Follow-up in 2 days Patient Instructions: Abrasions, Fall Prevention and Home Safety, Head Injury, Adult Additional Instructions: Follow-up with your regular doctor in 2 days. Return to the ER if worsening pain or any other concerns. Scripts Acetaminophen (TYLENOL) 325 Mg Tablet 1-2 TAB PO QID, #60 TAB 0 Refills Prov: GUERLINE REZA 12/23/18 Problem Qualifiers Primary Impression: Fall Encounter type: initial encounter Qualified Codes: W19.XXXA - Unspecified fall, initial encounter Additional Impressions: Closed head injury Encounter type: initial encounter Qualified Codes: S09.90XA - Unspecified injury of head, initial encounter Scalp abrasion Encounter type: initial encounter Qualified Codes: S00.01XA - Abrasion of scalp, initial encounter GUERLINE REZA DO Dec 23, 2018 09:02
[2018-12-23 09:06] LABS: BASO # 0.1 x10^3/uL (0.0-0.2); BASO % 1 % (0-3); EOS # 0.1 x10^3/uL (0.0-0.7); EOS % 1 % (0-3); HEMATOCRIT 28.4 % (36.0-47.0); LYMPH # 2.1 x10^3/uL (1.0-4.8); LYMPH % 21 % (24-48); MEAN CORPUSCULAR HEMOGLOBIN 26 pg (25-35); MEAN CORPUSCULAR HGB CONC 32 g/dL (31-37); MEAN CORPUSCULAR VOLUME 83 fL (79-100); MONO # 0.7 x10^3/uL (0.0-1.1); MONO % 7 % (0-9); NEUT # 7.1 x10^3uL (1.8-7.7); NEUT % 71 % (31-73); PLATELET COUNT 197 x10^3/uL (140-400); RED BLOOD COUNT 3.42 x10^6/uL (3.50-5.40); WHITE BLOOD COUNT 10.1 x10^3/uL (4.0-11.0)
[2018-12-23 09:13] LABS: CALCIUM 9.4 mg/dL (8.5-10.1); CREATININE 2.2 mg/dL (0.6-1.0); GFR 21.9; POTASSIUM 4.8 mmol/L (3.5-5.1)
[2018-12-23 09:26] LABS: PROTHROMBIN TIME PATIENT 12.7 SEC (11.7-14.0)
[2018-12-23 09:30] VITALS: BP 131/81
--- NOTE | 2018-12-23 09:36 | RAD ---
CT HEAD AND CERVICAL SPINE WO Indication: FALL WITH HEAD INJURY AND NECK PAIN X TODAY
PT HIT BACK OF HEAD
Exposure: One or more of the following individualized dose reduction techniques were utilized for this examination: 1. Automated exposure control 2. Adjustment of the mA and/or kV according to patient size 3. Use of iterative reconstruction technique. Technique: Standard imaging without intravenous contrast. FINDINGS: Comparison with study of December 18. Head: Intracranial arterial calcification. No acute intracranial hemorrhage, mass effect, midline shift or abnormal extra-axial fluid collection mild low-density in the white matter bilaterally, a nonspecific finding, but which is commonly due to chronic small vessel ischemic disease in a patient of this age. Generalized atrophy. Orbits unremarkable. There is mild scalp swelling in the left posterior parietal region, with a small amount of scalp air, presumably indicative of a laceration.. Partially visualized sinuses are clear. No evidence of a depressed skull fracture. IMPRESSION: No acute intracranial hemorrhage or mass effect. Probable small left parietal scalp laceration. Cervical spine Ring of C1 is intact. Cervico-occipital junction is intact. C1-C2 is symmetric. Diffuse bone demineralization. No definite acute fracture. Vertebral body height is maintained. No significant subluxation. Multilevel degenerative spondylosis with variable central spinal and neural foraminal stenosis. Degenerative changes at the facet joints without perched or locked facet. Partially visualized periodontal disease. Periapical lucencies at the left maxilla. Prevertebral soft tissues demonstrate no swelling or hematoma. Lung apices grossly clear. Visualized aorta calcified. IMPRESSION: 1. Degenerative spondylosis. 2. Bone demineralization, no definite acute fracture or traumatic subluxation. 3. Periodontal disease. Electronically signed by: Russel Duarte MD (12/23/2018 9:32 AM) [facility]
[2018-12-23] MEDS ORDERED: ACETAMINOPHEN 500 MG TABLET PO ONE (09:45)
[2018-12-23] MEDS ORDERED: ACET325T9 PO (09:45)
== END 2018-12-23 10:06 | disposition home or self-care (01) ==
LOC: ER 07:35
DX: S00.01XA Abrasion of scalp, initial encounter (principal); R51 Headache; J45.909 Unspecified asthma, uncomplicated; E10.9 Type 1 diabetes mellitus without complications; K21.9 Gastro-esophageal reflux disease without esophagitis; G89.29 Other chronic pain; Z88.7 Allergy status to serum and vaccine; Z91.018 Allergy to other foods; Z91.048 Other nonmedicinal substance allergy status; W01.0XXA Fall on same level from slipping, tripping and stumbling without subsequent striking against object, initial encounter; Y93.89 Activity, other specified; Y92.89 Other specified places as the place of occurrence of the external cause; Y99.8 Other external cause status
CPT/HCPCS: 36415; 70450; 72125; 80048; 85025; 85610; 99284-25

== ENCOUNTER 2018-12-25 09:13 | Inpatient (IN) | payer OTHER ==
[~2018-12-25] VITALS: Ht 152.4 cm; Wt 61.2 kg
[~2018-12-25 09:13] MED LIST changes: +ACET325T9 PO
[2018-12-25] MEDS ORDERED: IV NORMAL SALINE 1000ML BAG 1,000 ML IV ONE (09:30)
--- NOTE | 2018-12-25 09:48 | RAD ---
PORTABLE CHEST 1V Clinical Indication: FALL. AMS Comparison: AP chest, October 13, 2018. Findings: Atherosclerotic aortic arch. The cardiomediastinal silhouette is normal. Lungs are clear. There is no pneumothorax. No pleural effusion is appreciated. No acute bone abnormality. IMPRESSION: No acute cardiopulmonary process. Electronically signed by: George Martínez MD (12/25/2018 9:45 AM) [id number]
--- NOTE | 2018-12-25 10:02 | RAD ---
CT head without contrast and CT cervical spine without contrast dated 12/25/2018. No comparison available. Clinical data indication: Pain after injury. Fall. Altered mental status. TECHNIQUE: Contiguous axial imaging the head was performed from skull base to vertex. In addition, axial imaging of the cervical spine acquired with thin cut coronal and sagittal reconstruction. One or more of the following individualized dose reduction techniques were utilized for this examination: 1. Automated exposure control 2. Adjustment of the mA and/or kV according to patient size 3. Use of iterative reconstruction technique. FINDINGS: Ventricles and sulci are mildly prominent for age. No midline shift or mass effect. Mild patchy low density in the deep/subcortical periventricular white matter. No hemorrhage or extra-axial collection. Posterior fossa and brainstem unremarkable. Visualized paranasal sinuses and mastoid air cells are clear. No apparent calvarial abnormality. Images of the cervical spine were acquired skull base to T3. Sagittal alignment is anatomic. Vertebral body heights are maintained. No prevertebral soft tissue swelling. Posterior elements are intact. Mild to moderate hypertrophic change of the superior and inferior endplates throughout with multilevel mild disc space narrowing. Multilevel uncovertebral spurring and facet arthropathy. There is fusion of the posterior elements at C2-C3 and C4, left greater than right. Findings combine to result in mild central stenosis at C5-C6 and C6-C7. There is also moderate right foraminal stenosis at C4-C5. And moderate left foraminal stenosis at C6-C7. Visualized soft tissue structures unremarkable. Limited images of lung apices are clear. Impression head: 1. No evidence of acute intracranial hemorrhage or mass. 2. Mild chronic small vessel ischemic changes and atrophy. Impression cervical spine: 1. No evidence of fracture or malalignment. 2. Moderate multilevel spondylosis. Electronically signed by: Russel White MD (12/25/2018 9:59 AM) [id number]
[2018-12-25 10:22] LABS: BASO # 0.1 x10^3/uL (0.0-0.2); BASO % 1 % (0-3); EOS # 0.1 x10^3/uL (0.0-0.7); EOS % 1 % (0-3); HEMATOCRIT 28.4 % (36.0-47.0); LYMPH # 2.5 x10^3/uL (1.0-4.8); LYMPH % 29 % (24-48); MEAN CORPUSCULAR HEMOGLOBIN 26 pg (25-35); MEAN CORPUSCULAR HGB CONC 32 g/dL (31-37); MEAN CORPUSCULAR VOLUME 84 fL (79-100); MONO # 0.6 x10^3/uL (0.0-1.1); MONO % 7 % (0-9); NEUT # 5.3 x10^3uL (1.8-7.7); NEUT % 62 % (31-73); PLATELET COUNT 221 x10^3/uL (140-400); RED CELL DISTRIBUTION WIDTH 16.8 % (11.5-14.5); WHITE BLOOD COUNT 8.6 x10^3/uL (4.0-11.0)
[2018-12-25 10:47] LABS: CALCIUM 9.6 mg/dL (8.5-10.1); CREATININE 2.5 mg/dL (0.6-1.0); GFR 18.9; POTASSIUM 4.9 mmol/L (3.5-5.1)
[2018-12-25 10:50] LABS: ALBUMIN/GLOBULIN RATIO 0.6 (1.0-1.7); MAGNESIUM 2.1 mg/dL (1.8-2.4); TOTAL BILIRUBIN 0.2 mg/dL (0.2-1.0); TOTAL PROTEIN 8.1 g/dL (6.4-8.2)
[2018-12-25 11:02] LABS: CREATINE KINASE 54 U/L (26-192)
--- NOTE | 2018-12-25 13:37 | PHYS DOC ---
Past Medical History Past Medical History: Asthma, Diabetes-Type I, GERD Additional Past Medical Histor: RLS,CHRONIC PAIN Past Surgical History: Hysterectomy, Tonsillectomy Additional Past Surgical Histo: RIGHT ANKLE WITH RODS AND PINS, LRG BIG TOE SX Alcohol Use: None Drug Use: None Adult General Chief Complaint Chief Complaint: MECHANICAL FALL HPI HPI Patient is a 73 year old female with history of diabetes type 1 who presents to the ED today with complaints of frequent falls. Per EMS this patient has fallen down roughly 6 times this last week. Patient was seen in the ED 3 days ago after falling, she was evaluated and sent back home. Patient is alert and oriented 2. PCP Dr. Vargas Review of Systems Review of Systems Constitutional: Denies fever or chills [] Eyes: Denies change in visual acuity, redness, or eye pain [] HENT: Denies nasal congestion or sore throat [] Respiratory: Denies cough or shortness of breath [] Cardiovascular: No additional information not addressed in HPI [] GI: Denies abdominal pain, nausea, vomiting, bloody stools or diarrhea [] : Denies dysuria or hematuria [] Musculoskeletal: Reports frequent falls. Denies back pain or joint pain [] Integument: Denies rash or skin lesions [] Neurologic: Denies headache, focal weakness or sensory changes [] All other systems were reviewed and found to be within normal limits, except as documented in this note. Current Medications Current Medications Current Medications Medications (Trade) Dose Ordered Sig/Steph Start Time Stop Time Status Last Admin Dose Admin Lorazepam (Ativan) 1 mg 1X ONCE 12/25/18 11:30 12/25/18 11:31 DC Sodium Chloride 1,000 ml @ 1,000 mls/hr 1X ONCE 12/25/18 09:30 12/25/18 10:29 DC 12/25/18 10:08 1,000 MLS/HR Allergies Allergies Allergies Coded Allergies Type Severity Reaction Last Updated Verified Tetanus Vaccines and Toxoid Allergy Severe SWELLING 08/19/18 Yes wool Allergy Severe RASH 08/19/18 Yes peach Allergy Intermediate Rash 08/22/18 Yes Physical Exam Physical Exam Constitutional: Well developed, well nourished, no acute distress, non-toxic appearance. [] HENT: Normocephalic, atraumatic, bilateral external ears normal, oropharynx moist, no oral exudates, nose normal. [] Eyes: PERRLA, EOMI, conjunctiva normal, no discharge. Bruises noted on the right forehead, periorbital ecchymosis that appears old noted around the right eye. Neck: Normal range of motion, no tenderness, supple, no stridor. [] Cardiovascular:Heart rate regular rhythm, no murmur [] Lungs & Thorax: Bilateral breath sounds clear to auscultation [] Abdomen: Bowel sounds normal, soft, no tenderness, no masses, no pulsatile masses. [] Skin: Warm, dry, no erythema, no rash. [] Back: No tenderness, no CVA tenderness. [] Extremities: No tenderness, no cyanosis, no clubbing, ROM intact, no edema. missing right great toe tip Neurologic: Alert and oriented X 2, normal motor function, normal sensory function, no focal deficits noted. [] Psychologic: Affect normal, judgement normal, mood normal. [] Current Patient Data Vital Signs Vital Signs Date Time Temp Pulse Resp B/P (MAP) Pulse Ox O2 Delivery O2 Flow Rate FiO2 12/25/18 09:15 98.2 99 18 123/57 (79) 99 Room Air 98.2 Lab Values Laboratory Tests Test 12/25/18 10:05 White Blood Count 8.6 x10^3/uL (4.0-11.0) Red Blood Count 3.40 x10^6/uL (3.50-5.40) L Hemoglobin 9.0 g/dL (12.0-15.5) L Hematocrit 28.4 % (36.0-47.0) L Mean Corpuscular Volume 84 fL (79-100) Mean Corpuscular Hemoglobin 26 pg (25-35) Mean Corpuscular Hemoglobin Concent 32 g/dL (31-37) Red Cell Distribution Width 16.8 % (11.5-14.5) H Platelet Count 221 x10^3/uL (140-400) Neutrophils (%) (Auto) 62 % (31-73) Lymphocytes (%) (Auto) 29 % (24-48) Monocytes (%) (Auto) 7 % (0-9) Eosinophils (%) (Auto) 1 % (0-3) Basophils (%) (Auto) 1 % (0-3) Neutrophils # (Auto) 5.3 x10^3uL (1.8-7.7) Lymphocytes # (Auto) 2.5 x10^3/uL (1.0-4.8) Monocytes # (Auto) 0.6 x10^3/uL (0.0-1.1) Eosinophils # (Auto) 0.1 x10^3/uL (0.0-0.7) Basophils # (Auto) 0.1 x10^3/uL (0.0-0.2) Sodium Level 146 mmol/L (136-145) H Potassium Level 4.9 mmol/L (3.5-5.1) Chloride Level 105 mmol/L (98-107) Carbon Dioxide Level 32 mmol/L (21-32) Anion Gap 9 (6-14) Blood Urea Nitrogen 39 mg/dL (7-20) H Creatinine 2.5 mg/dL (0.6-1.0) H Estimated GFR (Cockcroft-Gault) 18.9 BUN/Creatinine Ratio 16 (6-20) Glucose Level 157 mg/dL (70-99) H Calcium Level 9.6 mg/dL (8.5-10.1) Magnesium Level 2.1 mg/dL (1.8-2.4) Total Bilirubin 0.2 mg/dL (0.2-1.0) Aspartate Amino Transferase (AST) 13 U/L (15-37) L Alanine Aminotransferase (ALT) 13 U/L (14-59) L Alkaline Phosphatase 90 U/L (46-116) Creatine Kinase 54 U/L (26-192) Creatine Kinase MB (Mass) 0.7 ng/mL (0.0-3.6) Creatine Kinase MB Relative Index % (0-4) Troponin I Quantitative < 0.017 ng/mL (0.000-0.055) TO-Iub-T-Type Natriuretic Peptide 298 pg/mL (0-124) H Total Protein 8.1 g/dL (6.4-8.2) Albumin 3.0 g/dL (3.4-5.0) L Albumin/Globulin Ratio 0.6 (1.0-1.7) L Lipase 123 U/L (73-393) Thyroid Stimulating Hormone (TSH) 3.996 uIU/mL (0.358-3.74) H Laboratory Tests 12/25/18 10:05 Laboratory Tests 12/25/18 10:05 EKG EKG [] Radiology/Procedures Radiology/Procedures [] Course & Med Decision Making Course & Med Decision Making Pertinent Labs and Imaging studies reviewed. (See chart for details) This is a 73-year-old female patient presenting to the ED today to be evaluated for multiple falls. Patient has fallen 6 or more times in the last 7 days. Upon arrival to the ED she was alert and oriented 2. CT of the head and cervical spine were negative. CBC with no acute findings, when the nurse went to go get patient's EKG, she became very aggressive, yelling demanding to be discharged home. I went to the room to try and talk to patient. She was very aggressive, she is yelling and screaming. She appears confused, and is not following any instructions. I consulted with Dr. Vargas, he states this patient is usually very pleasant which is true considering when she came to the ED she was very pleasant. Patient was admitted. We will try and get urine Dragon Disclaimer Dragon Disclaimer This electronic medical record was generated, in whole or in part, using a voice recognition dictation system. Departure Departure Impression: Primary Impression: Altered mental status Additional Impressions: Acute on chronic renal failure Falls frequently Disposition: 09 ADMITTED INPATIENT Condition: STABLE Referrals: HAMMAD VARGAS MD (PCP) Problem Qualifiers Primary Impression: Altered mental status Altered mental status type: unspecified Qualified Codes: R41.82 - Altered mental status, unspecified Additional Impressions: Acute on chronic renal failure Acute renal failure type: unspecified Chronic kidney disease stage: unspecified stage Qualified Codes: N17.9 - Acute kidney failure, unspecified; N18.9 - Chronic kidney disease, unspecified SANDRA HEARD APRN Dec 25, 2018 13:37
[2018-12-25] MEDS ORDERED: ONDANSETRON PF 4 MG/2 ML VIAL. IV PRN (13:45)
[2018-12-25] MEDS ORDERED: DEXTROSE 50% 25 GM / 50ML DISP.SYRIN. IV PRN (13:45)
[2018-12-25 15:00] VITALS: BP 110/47
--- NOTE | 2018-12-25 16:15 | EKG ---
[facility] [address] [place] [address] Test Date: 2018-12-25 Test Time: 15:45:11 Pat Name: ALFREDO MATAMOROS Department: Room: 654 1 Gender: F Russet Repairer: : 1945 Requested By: SANDRA HEARD Order Number: [id number] Reading MD: Parish Garcia MD Measurements Intervals [place] Rate: 91 P: MI: QRS: 72 QRSD: 88 T: -151 QT: 344 QTc: 425 Interpretive Statements SR NON-SPECIFIC ST/T CHANGES Electronically Signed On 01-02-2019 23:19:38 CDT by Parish Garcia MD
[2018-12-25] MEDS: INSULIN LISPRO 300 UNITS/3 ML INSULN.PEN. SQ SCH (17:00)
[2018-12-25 19:00] VITALS: BP 156/60
[2018-12-25] MEDS ORDERED: ACETAMINOPHEN 325 MG TABLET. PO PRN (21:15)
[2018-12-25 23:06] VITALS: BP 130/53
[2018-12-26 03:00] VITALS: BP 156/68
[2018-12-26 05:52] LABS: BASO % 0 % (0-3); EOS # 0.1 x10^3/uL (0.0-0.7); EOS % 1 % (0-3); HEMATOCRIT 25.2 % (36.0-47.0); HEMOGLOBIN 7.9 g/dL (12.0-15.5); LYMPH # 2.2 x10^3/uL (1.0-4.8); LYMPH % 28 % (24-48); MEAN CORPUSCULAR HEMOGLOBIN 26 pg (25-35); MEAN CORPUSCULAR HGB CONC 31 g/dL (31-37); MEAN CORPUSCULAR VOLUME 83 fL (79-100); MONO # 0.5 x10^3/uL (0.0-1.1); MONO % 7 % (0-9); NEUT # 5.1 x10^3uL (1.8-7.7); NEUT % 64 % (31-73); PLATELET COUNT 204 x10^3/uL (140-400); RED BLOOD COUNT 3.02 x10^6/uL (3.50-5.40); RED CELL DISTRIBUTION WIDTH 16.8 % (11.5-14.5)
[2018-12-26 06:00] LABS: ALBUMIN 2.8 g/dL (3.4-5.0); ALBUMIN/GLOBULIN RATIO 0.6 (1.0-1.7); CALCIUM 9.2 mg/dL (8.5-10.1); CREATININE 2.2 mg/dL (0.6-1.0); GFR 21.9; POTASSIUM 4.4 mmol/L (3.5-5.1); TOTAL BILIRUBIN 0.2 mg/dL (0.2-1.0); TOTAL PROTEIN 7.7 g/dL (6.4-8.2)
[2018-12-26 07:10] VITALS: BP 144/93
--- NOTE | 2018-12-26 07:18 | NUR ---
Pt. refusing to wear tele monitor. Addendum: 12/26/18 at 0720 by ANNEMARIE NGUYỄN RN Explained to pt. why she needs it on and its purpose.
[2018-12-26] MEDS: INSULIN LISPRO 300 UNITS/3 ML INSULN.PEN. SQ SCH ×3 (08:51→17:30)
--- NOTE | 2018-12-26 09:14 | HP ---
ADMIT DATE: 12/25/2018 CHIEF COMPLAINT AND HISTORY OF PRESENT ILLNESS: This is a 73-year-old white female admitted through the Emergency Room with yet another fall on the day of admission. She had been to the Emergency Room 2-3 times over the last week or so with falls. Upon questioning with her, she states that she gets very lightheaded and dizzy with standing up typically and that is why she has fallen. She does state on one episode, she believes that she was completely out during the fall, her story sounds very suggestive of orthostatic symptoms causing this. I asked her about balance as she has recently lost a big toe due to osteomyelitis, but does not feel like this is a balance thing typically, although she did trip over some slippers one time with a fall. PAST MEDICAL HISTORY: Remarkable for diabetes, asthma, GERD, restless legs. PAST SURGICAL HISTORY: She has had prior right ankle fracture, great toe amputation, hysterectomy, tonsillectomy. MEDICATIONS: Brought with the patient, listed on the computer and have been addressed. ALLERGIES: SHE IS ALLERGIC TO TETANUS, PEACH AND WOOL. SOCIAL HISTORY: She is a nonsmoker, nondrinker, does not use drugs. Lives at home with her significant other. FAMILY HISTORY: Noncontributory. REVIEW OF SYSTEMS: Remarkable for that as mentioned above plus the fact that she feels sore all over from the falls. PHYSICAL EXAMINATION: GENERAL: She is well-developed, well-nourished white female, in no acute distress. VITAL SIGNS: Stable. She is afebrile. HEAD, EYES, EARS, NOSE AND THROAT: Remarkable for some bruising about the right eye. NECK: Supple, without adenopathy or thyromegaly. CHEST: Clear to auscultation and percussion. HEART: Regular rate and rhythm without S3, S4 or murmur. ABDOMEN: Soft, nontender, without hepatosplenomegaly or mass. EXTREMITIES: Without cyanosis, clubbing or edema. 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 NEUROLOGIC: Intact. INITIAL LABORATORY: Shows a stable anemia with a hemoglobin in the 9 range. Creatinine is 2.2, which is also in the stable range for her, albumin is 2.8. TSH is minimally elevated at 3.996. IMPRESSION: 1. Multiple falls and at least one episode of syncope, likely orthostatic in nature. 2. Diabetes. 3. Chronic kidney disease with anemia of chronic disease. PLAN: We will ask therapy to evaluate. We will do orthostatic vital signs for starters and the patient will be monitored, managed and treated appropriately. HAMMAD VARGAS MD DR: CARITO/humble JOB#: [id number] / [id number]
[2018-12-26 11:38] VITALS: BP 167/64
--- NOTE | 2018-12-26 13:35 | NUR ---
SW following pt for anticipated dc needs. Chart reviewed. Pt lives at home with significant other. Pt has been with [facility] in the past. PT/OT pending. SW will await for PT/OT recommendation to assess needs. Will continue to follow.
--- NOTE | 2018-12-26 15:07 | NUR ---
Wound Care Wound care consult for right foot DFU. Pt has amp site on right great toe that is crusty and reddened. Pt also has right lateral foot wound that appears to be calloused but has purulent drainage. Cleansed wound, culture obtained, Dr Hunter consulted, X-ray ordered as well as arterial study as posterior tibial pulse is weak with Doppler. Pt has calloused area on coccyx, ordered P500 bed and wc cushion for offloading. Pt educated on PU prevention. No other wounds noted of full skin inspection. WC will continue to follow for possible changes.
[2018-12-26 15:30] VITALS: BP_SYST 163; BP_SYST 181; BP_SYST 93; BP_DIAS 43; BP_DIAS 75; BP_DIAS 76
--- NOTE | 2018-12-26 17:08 | RAD ---
Portable right foot, 3 views, 12/26/2018: HISTORY: Great toe and lateral foot wounds There is moderate patchy bony demineralization. There has been amputation of the great toe at the level of the distal end of the proximal phalanx. There is a bandage at the stump with associated gas collections which may lie in the soft tissues. Mild cortical irregularity at the stomach may be postsurgical. There is a bony erosion along the lateral aspect of the proximal and of the proximal phalanx at the first MTP joint. This may be arthritic, although an infectious etiology cannot be excluded. There are scattered degenerative changes. No additional bone erosion or destruction is seen. There has been previous surgical fusion at the ankle joint level with a tibial intramedullary marty extending into the talus and calcaneus and multiple associated screws. Arterial calcifications are present. IMPRESSION: 1. Chronic findings as described above. 2. Small erosion along the proximal end of the proximal phalanx of the great toe which may be arthritic, although infection cannot be excluded. Electronically signed by: Ferdinand Neville MD (12/26/2018 5:05 PM) [facility]
--- NOTE | 2018-12-26 17:15 | RAD ---
Right lower extremity arterial ultrasound, 12/26/2018: HISTORY: Right foot wound Duplex evaluation of the major arteries in the right lower extremity was performed including grayscale, color-flow and spectral Doppler analysis. The right common femoral artery demonstrates a triphasic Doppler waveform. There are moderate scattered calcified plaques partially obscuring the underlying lumen at multiple levels. The Doppler waveforms in the superficial femoral and popliteal artery are monophasic and they become somewhat dampened at the popliteal artery level. No significant focal velocity acceleration is seen through these regions to suggest high-grade focal stenosis. No blood flow is evident in the posterior tibial artery in the right lower leg. A patent peroneal artery could not be visualized. There is blood flow in the right anterior tibial artery which demonstrates a monophasic Doppler waveform. The right dorsalis pedis artery is patent with a monophasic Doppler waveform. IMPRESSION: 1. Moderate scattered calcific plaquing. 2. No high-grade focal femoral-popliteal stenosis was identified. 3. Moderate degradation of the distal Doppler waveforms. 4. Posterior tibial and probable peroneal artery occlusions in the right lower leg. Electronically signed by: Ferdinand Neville MD (12/26/2018 5:12 PM) [facility]
[2018-12-26 19:48] VITALS: BP 161/61
[2018-12-26 23:30] VITALS: BP 169/71
[2018-12-27] VITALS (8 sets, daily range): BP systolic 77–169; BP diastolic 37–70
[2018-12-27 00:59] LABS: BILIRUBIN,URINE NEGATIVE (NEG); CLARITY,URINE TURBID; COLOR,URINE YELLOW; NITRITE,URINE NEGATIVE (NEG); PROTEIN,URINE 100 mg/dL (NEG-TRACE); UROBILINOGEN,URINE 0.2 mg/dL (0.2 mg/dL)
[2018-12-27 01:03] LABS: BACTERIA,URINE MANY /HPF (0-FEW); SQUAMOUS EPITHELIAL CELL,UR MOD /LPF; WBC,URINE TNTC /HPF (0-4)
[2018-12-27 01:05] LABS: AMPHETAMINE/METHAMPHETAMINE NEG (NEG); BARBITURATES NEG (NEG); BENZODIAZEPINES NEG (NEG); CANNABINOIDS NEG (NEG); COCAINE NEG (NEG); METHADONE NEG (NEG); OPIATES NEG (NEG); PHENCYCLIDINE NEG (NEG)
[2018-12-27] MEDS: INSULIN LISPRO 300 UNITS/3 ML INSULN.PEN. SQ SCH ×3 (08:58→17:28)
[2018-12-27] MEDS ORDERED: ACETAMINOPHEN 325 MG TABLET. PO PRN (10:45)
[2018-12-27] MEDS: PANTOPRAZOLE 40 MG TABLET.DR. PO SCH (11:31)
[2018-12-27] MEDS: LINAGLIPTIN 5 MG TABLET PO SCH (11:31)
[2018-12-27] MEDS: ONDANSETRON ODT 4 MG TAB.RAPDIS. PO SCH ×2 (11:31→17:23)
[2018-12-27] MEDS ORDERED: ALBUTEROL SULFATE 2.5 MG/3 ML NEBU. NEB SCH (12:00)
[2018-12-27] MEDS ORDERED: BUDESONIDE 0.5 MG/2 ML NEBU. NEB SCH (12:00)
--- NOTE | 2018-12-27 12:27 | NUR ---
SW following pt. Spoke with Pt about PT/OT recommendation for SNU. Pt declined SNU and stated she did not have a good experience in the past. Pt wants to go home with [facility]. SW will arrange HH upon dc. Will continue to follow.
[2018-12-27] MEDS ORDERED: ALBUTEROL SULFATE 2.5 MG/3 ML NEBU. NEB PRN (13:45)
--- NOTE | 2018-12-27 13:53 | NUR ---
Wound care: Patient seen per wound care follow up again today. Dr. Carmen consulted. Dressings removed and wounds cleansed and assessed. Dr. Carmen performed bedside debridement with written and verbal consent of patient. Wounds repictured and remeasured following debridement. Wounds redressed with Iodoflex, ABD pads, and kerlix. Dressing change instructions left in room as well as Iodoflex. No other wounds noted. Patient repositioned in bed. Call light in reach and bed lowered. Wound care will follow patient.
--- NOTE | 2018-12-27 14:56 | PDOC2 ---
Chief Complaint: Chief Complaint: DFU right foot in diabetic with hx of osteomyelitis and amputation of distal right great toe. Problems: (1) NON-PRS CHRONIC ULCER OTH PRT R FOOT LIMITED TO BRKDWN SKIN (2) TYPE 2 DIABETES MELLITUS WITH FOOT ULCER Vital Signs: Vital Signs: Vital Signs Date Time Temp Pulse Resp B/P (MAP) Pulse Ox O2 Delivery O2 Flow Rate FiO2 12/26/18 07:10 97.9 103 18 144/93 (110) 98 Room Air 97.9 Vital Signs Date Time Temp Pulse Resp B/P (MAP) Pulse Ox O2 Delivery O2 Flow Rate FiO2 12/27/18 12:15 99 Room Air 12/27/18 11:00 98.1 97 20 147/63 (91) 98.1 Allergies: Allergies: Allergies Coded Allergies Type Severity Reaction Last Updated Verified Tetanus Vaccines and Toxoid Allergy Severe SWELLING 08/19/18 Yes wool Allergy Severe RASH 08/19/18 Yes peach Allergy Intermediate Rash 08/22/18 Yes Medications: Home Meds Active Scripts Acetaminophen (TYLENOL) 325 Mg Tablet, 1-2 TAB PO QID, #60 TAB 0 Refills Prov:GUERLINE REZA DO 12/23/18 Sulfamethoxazole/Trimethoprim (BACTRIM DS TABLET) 1 Each Tablet, 1 TAB PO BID, # 14 TAB Prov:GUERLINE REZA DO 12/16/18 Hyoscyamine Sulfate (LEVSIN) 0.125 Mg Tablet, 0.125 MG PO QID, #30 TAB Prov:GUERLINE REZA DO 12/16/18 Lactulose (LACTULOSE) 20 Gm/30 Ml Solution, 20 GM PO BID, #1 BOT Prov:GUERLINE REZA DO 12/16/18 Ondansetron Hcl (ZOFRAN) 4 Mg Tablet, 1 TAB PO Q6HRS for nausea, #20 TAB Prov:JACQUI ADAMES MD 11/18/18 Linagliptin (TRADJENTA) 5 Mg Tablet, 5 MG PO DAILY for diabetes for 30 Days, # 30 TAB Prov:HAMMAD ABARCA MD 10/20/18 Lactulose (LACTULOSE) 20 Gm/30 Ml Solution, 20 GM PO BID PRN for CONSTIPATION, # 1 BOT Prov:TRINIDAD WYATT MD 10/05/18 Hydrocodone Bit/Acetaminophen (HYDROCODONE-APAP 5-325 ) 1 Each Tablet, 1 TAB PO PRN Q4HRS PRN for MODERATE PAIN for 30 Days, #180 TAB Prov:HAMMAD ABARCA MD 08/24/18 Reported Medications Insulin Lispro (HUMALOG) 100 Unit/1 Ml Insuln.pen, 0 SQ TIDWMEALHC for diabetes , SYR blood sugar less than 150 no insulin. 150-199 2 units 200-249 4 units 250-299 7 units 300-349 10 units 350 or more 12 units 08/23/18 Fluticasone/Salmeterol (ADVAIR 250-50 DISKUS) 1 Each Disk.w.dev, 1 SPRAY IN BID for asthma 08/20/18 Pramipexole Di-Hcl (MIRAPEX) 0.5 Mg Tablet, 0.5 TAB PO HS for RLS 08/20/18 Omeprazole (OMEPRAZOLE) 20 Mg Capsule.dr, 20 MG PO DAILY for gerd 08/20/18 Citalopram Hydrobromide (CITALOPRAM HBR) 10 Mg Tablet, 10 MG PO HS for depression 08/20/18 PCP: PCP: Perry Abarca MD Pain: Pain Description: Throbbing Scale (pain): 0 Pain Context: None Date of Onset Ms. Roque states that the ulcer on the lateral right foot started over a year ago when she had an ill-fitting brace her foot shortly after the partial amputation o f her right great toe, which occurred in August of 2018. She has not sought care for this wound and has not made any attempt at treating it herself. She has no pain with it. No drainage, no bleeding. She has a hx of osteomyelitis in the great toe of the same foot with partial amputation as above. She is a nonsmoker. She has diabetes for which she takes insulin. She does not know what her latest Hgb A1c is. Surgical Date NA PMH type II DM, taking insulin. No CAD of which she is aware. Surgical History Partial amputation distal right great toe. PSH Nonsmoker. Nondrinker. Review of Systems: No recent fever. Physical Exam - Wound #1 Wound Exam Location of Modifier: Right Wound Location: Lateral Body Site: Foot (distal) Drainage Amount: None Odor: None/Absent Grade Felix: 2 (Wound base involves fascia.) Surgical Debridement #1 Time Out Completed: Time Out Procedure: Wound Asssess. Performed Wound Location: Distal right lateral foot Anesthesia: None Tissue Removed: Slough, Devitalized Method of Debridement: Scissors, Curette Depth of Debridement: SQ Bleeding: None Pain Level: Pain ___/10 0 Post Debridement Measurement: Length cm.: 0 A/P Felix 2 DFU distal right lateral foot with no s/s infection. Bone is not palpable. Arteriogram does not show focal stenosis but there is diffuse PAD. I recommend angiography with the goal of evaluating potential intervention to improve the perfusion of her distal lateral foot. Specifically, since the wound is in the distribution of the Posterior Tibial Artery which is non-visualized on the arteriogram. She needs foot wear with a wide toe box and I recommend evaluation by [facility] [employer] for diabetic shoes. Problems: (1) TYPE 2 DIABETES MELLITUS WITH FOOT ULCER (2) NON-PRS CHRONIC ULCER OTH PRT R FOOT LIMITED TO BRKDWN SKIN MANA STILES MD Dec 27, 2018 14:56
--- NOTE | 2018-12-27 20:38 | PDOC ---
GENERAL General: vss and afebrile. awake and alert. chest clear, heart regular, abdomen benign, and wound care help with foot appreciated. discussed with nursing to do orthostatic vital signs q shift and have added support hose. story very cw orthostasis and may need to add florinef. VITAL SIGNS Vital Signs: Vital Signs Date Time Temp Pulse Resp B/P (MAP) Pulse Ox O2 Delivery O2 Flow Rate FiO2 12/27/18 19:38 98.2 107 24 77/37 (50) 96 Room Air 98.2 I & O I & O Intake and Output 12/27/18 07:00 Intake Total 1130 ml Output Total 450 ml Balance 680 ml Intake Oral 1130 ml Output Urine Total 450 ml # Voids 6 ALLERGIES Allergies: Allergies Coded Allergies Type Severity Reaction Last Updated Verified Tetanus Vaccines and Toxoid Allergy Severe SWELLING 08/19/18 Yes wool Allergy Severe RASH 08/19/18 Yes peach Allergy Intermediate Rash 08/22/18 Yes MEDS Medications: Current Medications Medications (Trade) Dose Ordered Sig/Steph Start Time Stop Time Status Last Admin Dose Admin Acetaminophen (Tylenol) 650 mg QID PRN 12/27/18 10:45 12/27/18 10:45 DC Acetaminophen/ Hydrocodone Bitart (Lortab 5/325) 1 tab PRN Q4HRS PRN 12/27/18 10:45 Albuterol Sulfate (Ventolin Neb Soln) 2.5 mg PRN Q4HRS PRN 12/27/18 13:45 Budesonide (Pulmicort) 0.5 mg RTBID 12/27/18 12:00 12/27/18 13:37 DC Dextrose (Dextrose 50%-Water Syringe) 12.5 gm PRN Q15MIN PRN 12/25/18 13:45 Insulin Human Lispro (HumaLOG) 0-5 UNITS TIDWMEALS 12/25/18 17:00 12/27/18 17:28 2 UNITS Linagliptin (Tradjenta) 5 mg DAILY 12/27/18 11:30 12/27/18 11:31 5 MG Lorazepam (Ativan) 1 mg PRN Q6HRS PRN 12/25/18 19:00 Non-Formulary Medication (Fluticasone/ Salmeterol (Advair 250-50 Diskus)) 1 spray BID 12/27/18 21:00 UNV Ondansetron HCl (Zofran Odt) 4 mg Q6HRS 12/27/18 12:00 12/27/18 17:23 4 MG Ondansetron HCl (Zofran) 4 mg PRN Q8HRS PRN 12/25/18 13:45 12/26/18 13:44 DC Pantoprazole Sodium (Protonix) 40 mg DAILYAC 12/27/18 11:30 12/27/18 11:31 40 MG Pramipexole Dihydrochloride (miraPEX) 0.5 mg QHS 12/27/18 21:00 Sodium Chloride 1,000 ml @ 1,000 mls/hr 1X ONCE 12/25/18 09:30 12/25/18 10:29 DC 12/25/18 10:08 1,000 MLS/HR LAB Lab: Laboratory Tests Test 12/27/18 00:50 12/27/18 07:16 12/27/18 11:58 12/27/18 16:57 Urine Collection Type Unknown Urine Color Yellow Urine Clarity Turbid Urine pH 7.0 Urine Specific [place] 1.010 Urine Protein 100 mg/dL (NEG-TRACE) Urine Glucose (UA) 100 mg/dL (NEG) Urine Ketones (Stick) Negative mg/dL (NEG) Urine Blood Large (NEG) Urine Nitrite Negative (NEG) Urine Bilirubin Negative (NEG) Urine Urobilinogen Dipstick 0.2 mg/dL (0.2 mg/dL) Urine Leukocyte Esterase Large (NEG) Urine RBC 3-5 /HPF (0-2) Urine WBC Tntc /HPF (0-4) Urine Squamous Epithelial Cells Mod /LPF Urine Bacteria Many /HPF (0-FEW) Urine Opiates Screen Neg (NEG) Urine Methadone Screen Neg (NEG) Urine Barbiturates Neg (NEG) Urine Phencyclidine Screen Neg (NEG) Urine Amphetamine/Methamphetamine Neg (NEG) Urine Benzodiazepines Screen Neg (NEG) Urine Cocaine Screen Neg (NEG) Urine Cannabinoids Screen Neg (NEG) Urine Ethyl Alcohol Neg (NEG) Glucose (Fingerstick) 159 mg/dL (70-99) 231 mg/dL (70-99) 177 mg/dL (70-99) Test 12/27/18 19:26 Glucose (Fingerstick) 163 mg/dL (70-99) HAMMAD VARGAS MD Dec 27, 2018 20:38
[2018-12-27] MEDS ORDERED: SALMETEROL IN SCH (21:00)
[2018-12-27] MEDS ORDERED: FLUTICASONE IN SCH (21:00)
[2018-12-27] MEDS: PRAMIPEXOLE 0.25 MG TABLET. PO SCH (21:22)
[2018-12-28 03:58] VITALS: BP 125/46
[2018-12-28 07:09] VITALS: BP 122/50
[2018-12-28] MEDS: ONDANSETRON ODT 4 MG TAB.RAPDIS. PO SCH ×6 (07:14→20:49)
[2018-12-28] MEDS: INSULIN LISPRO 300 UNITS/3 ML INSULN.PEN. SQ SCH ×3 (07:26→17:27)
[2018-12-28] MEDS: PANTOPRAZOLE 40 MG TABLET.DR. PO SCH (08:20)
[2018-12-28] MEDS: LINAGLIPTIN 5 MG TABLET PO SCH (08:21)
[2018-12-28] MEDS: NYSTATIN 100,000 UNIT/GM TOPICAL CREAM 15GM TUBE. TP SCH ×2 (10:06→20:44)
[2018-12-28 10:45] VITALS: BP 107/56
--- NOTE | 2018-12-28 11:49 | PDOC2 ---
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 Reports that she has fallen almost everyday in the last week. No injuries. Last fall was the day of hospitalization to which she was trying to get up off the toilet and stood up and got lightheaded and fell hitting her right side of her head to the commode. She passed out, unknown duration but when she woke up she yelled for her . She has been falling almost everyday in the last week and mostly when she stands up and feels lightheaded. No CP, SOA, palpitations and it does not feel like her BG is dropping, no diaphoresis or nausea. PAST MEDICAL HISTORY Cardiovascular: Other Pulmonary: No pertinent hx CENTRAL NERVOUS SYSTEM: Other (RLS) Heme/Onc: No pertinent hx Hepatobiliary: No pertinent hx Psych: No pertinent hx Musculoskeletal: Osteoarthritis Rheumatologic: No pertinent hx Infectious disease: No pertinent hx ENT: No pertinent hx Endocrine: Diabetes (2) PAST SURGICAL HISTORY Past Surgical History: Tonsillectomy, Hysterectomy, Other (right great toe amputation r/t osteomyelitis; right ankle repair) SOCIAL HISTORY Smoke: No ALCOHOL: none Drugs: None Lives: with Family CURRENT MEDICATIONS CURRENT MEDICATIONS Current Medications Medications (Trade) Dose Ordered Sig/Steph Route PRN Reason Start Time Stop Time Status Last Admin Dose Admin Ondansetron HCl (Zofran Odt) 4 mg Q6HRS PO 12/27/18 12:00 12/28/18 07:14 Pramipexole Dihydrochloride (miraPEX) 0.5 mg QHS PO 12/27/18 21:00 12/27/18 21:22 Nystatin (Mycostatin) 1 julián BID TP 12/28/18 09:00 12/28/18 10:06 ALLERGIES ALLERGIES: Coded Allergies: Tetanus Vaccines and Toxoid (Verified Allergy, Severe, SWELLING, 08/19/18) wool (Verified Allergy, Severe, RASH, 08/19/18) peach (Verified Allergy, Intermediate, Rash, 08/22/18) ROS Review of System 14 point ROS evaluated with pertinent positives noted per HPI PHYSICAL EXAM General: Alert, Oriented X3, Cooperative, No acute distress HEENT: Atraumatic, Mucous membr. moist/pink Lungs: Clear to auscultation, Normal air movement Heart: Regular rate, Normal S1, Normal S2 Abdomen: Soft, No tenderness Extremities: No cyanosis Skin: Other (right foot wound) Neuro: Normal speech, Sensation intact Psych/Mental Status: Mental status NL, Mood NL MUSCULOSKELETAL: Osteoarthritic changes both hands VITALS VITALS Vital Signs Date Time Temp Pulse Resp B/P (MAP) Pulse Ox O2 Delivery O2 Flow Rate FiO2 12/28/18 10:45 98.3 95 18 107/56 (73) 96 Room Air 98.3 LABS Lab: Laboratory Tests Test 12/27/18 11:58 12/27/18 16:57 12/27/18 19:26 12/28/18 07:03 Glucose (Fingerstick) 231 mg/dL (70-99) 177 mg/dL (70-99) 163 mg/dL (70-99) 143 mg/dL (70-99) IMAGES IMAGES IMPRESSION: 1. Moderate scattered calcific plaquing. 2. No high-grade focal femoral-popliteal stenosis was identified. 3. Moderate degradation of the distal Doppler waveforms. 4. Posterior tibial and probable peroneal artery occlusions in the right lower leg. DATE: 12/26/18 1712 ECHOCARDIOGRAM ECHOCARDIOGRAM <Conclusion> The left ventricular systolic function is normal. The Ejection Fraction is 55-60%. There is normal LV segmental wall motion. Transmitral Doppler flow pattern is Grade I-abnormal relaxation pattern. Trace tricuspid regurgitation. The PA pressure was estimated at 19 mmHg. There is no evidence of significant pericardial effusion. DATE: 10/19/18 1423 ASSESSMENT/PLAN ASSESSMENT/PLAN 1. Syncope and presyncopal episodes with nontraumatic multiple falls: likely from orthostasis 2. Orthostasis: more likely with autonomic neuropathy 3. CKD4?: has not seen nephrology in the past 4. Right foot wound with PAD/DM with poor wound healing: LE arterial duplex noted no claudication symptoms 5. UTI: urinary retention? 6. DM: insulin dependent Recommendations 1. Will need nephrology consult. Given her renal dysfunction she will need further renal workup prior to any attempts of LE angiogram which could be done as an outpt 2. Continue with LE compression and will add abd binder and will recheck for orthostasis. Check cortisol, will consider either florinef or low dose midodrine. 3. Discussed with RN. Tele monitor to start. BMP and Mg, push fluids. SMITHA CORONADO MD 12/29/18 0918: CARDIAC CONSULT ASSESSMENT/PLAN ASSESSMENT/PLAN Patient seen and examined 12/28/18. Agree with BALL MILL MIXER's assessment and plan. Syncope most probably secondary to orthostasis, likely from autonomic dysfunction Agree with nephrologic consultation for chronic kidney disease We will consider aortogram as an outpatient for her PAD Thank you for your consultation PRERNA CARIAS APRN Dec 28, 2018 11:49 SMITHA CORONADO MD Dec 29, 2018 09:18
--- NOTE | 2018-12-28 12:31 | NUR ---
Pt refused meds, labs, binder, and PVR scan at 1232. Pt recently lost 3 family members and experiencing anxiety with all the activity. Will re-attempt interventions at a later time.
[2018-12-28 15:05] VITALS: BP 122/63
[2018-12-28 15:33] LABS: CALCIUM 9.5 mg/dL (8.5-10.1); CREATININE 2.5 mg/dL (0.6-1.0); GFR 18.9; POTASSIUM 4.9 mmol/L (3.5-5.1)
[2018-12-28 19:54] VITALS: BP 116/47
--- NOTE | 2018-12-28 20:28 | PN ---
DATE: 12/28/2018 LOCATION: She is room 654. SUBJECTIVE: The patient is awake, alert, has no complaints at rest. OBJECTIVE: VITAL SIGNS: Stable. She is afebrile. Profound orthostatic changes noted yesterday. CHEST: Clear. HEART: Regular. ABDOMEN: Benign. Bruising is stable. ASSESSMENT: 1. Severe orthostasis with falls and possible syncope at times. 2. Diabetes. 3. Peripheral arterial disease. PLAN: At this point, I am going to ask Cardiology to see. We will see how the support hose do today. She may need something like Florinef in addition. HAMMAD VARGAS MD DR: CARITO/humble JOB#: [id number] / [id number]
[2018-12-28] MEDS: PRAMIPEXOLE 0.25 MG TABLET. PO SCH (20:36)
[2018-12-28 23:24] VITALS: BP 139/59
[2018-12-29] VITALS (10 sets, daily range): BP systolic 69–150; BP diastolic 42–71
[2018-12-29] MEDS: ONDANSETRON ODT 4 MG TAB.RAPDIS. PO SCH ×4 (06:00→22:57)
[2018-12-29] MEDS: LINAGLIPTIN 5 MG TABLET PO SCH (08:46)
[2018-12-29] MEDS: PANTOPRAZOLE 40 MG TABLET.DR. PO SCH (08:46)
[2018-12-29] MEDS: INSULIN LISPRO 300 UNITS/3 ML INSULN.PEN. SQ SCH ×3 (08:51→16:48)
--- NOTE | 2018-12-29 10:59 | PDOC ---
CARDIO Progress Notes Date and Time Date of Service 12/29/2018 Time of Evaluation 1030 Subjective Subjective: No Chest Pain, No shortness of breath, No Palpitations, Other ( still gets dizzy when getting up. ) Vitals Vitals Vital Signs Date Time Temp Pulse Resp B/P (MAP) Pulse Ox O2 Delivery O2 Flow Rate FiO2 12/29/18 08:26 89 101/43 (62) Room Air 12/29/18 07:22 98.2 18 100 98.2 Weight Weight [ ] Input and Output Intake and Output Intake and Output 12/29/18 06:59 Intake Total 600 ml Balance 600 ml Intake Oral 600 ml # Voids 9 Laboratory Labs Laboratory Tests Test 12/28/18 11:44 12/28/18 15:00 12/28/18 16:44 12/28/18 20:41 Glucose (Fingerstick) 172 mg/dL (70-99) 156 mg/dL (70-99) 164 mg/dL (70-99) Sodium Level 144 mmol/L (136-145) Potassium Level 4.9 mmol/L (3.5-5.1) Chloride Level 104 mmol/L (98-107) Carbon Dioxide Level 33 mmol/L (21-32) Anion Gap 7 (6-14) Blood Urea Nitrogen 37 mg/dL (7-20) Creatinine 2.5 mg/dL (0.6-1.0) Estimated GFR (Cockcroft-Gault) 18.9 Glucose Level 178 mg/dL (70-99) Calcium Level 9.5 mg/dL (8.5-10.1) Magnesium Level 2.0 mg/dL (1.8-2.4) Cortisol PM Sample 11.4 ug/dL (3.1-16.7) Test 12/29/18 07:20 Glucose (Fingerstick) 167 mg/dL (70-99) Microbiology Micro Microbiology 12/27/18 Urine Culture - Preliminary, Resulted 12/27/18 Urine Culture Result 1 (JOLANTA) - Preliminary, Resulted 12/26/18 Anaerobic/Aerobic Culture, Resulted Pending 12/26/18 Anaerobic Culture Result 1 (JOLANTA), Resulted Pending 12/26/18 Aerobic Culture - Preliminary, Resulted 12/26/18 Aerobic Culture Result 1 (JOLANTA) - Preliminary, Resulted 12/26/18 Gram Stain - Final, Resulted 12/26/18 Gram Stain Result 1 (JOLANTA) - Final, Resulted 12/26/18 Gram Stain Result 2 (JOLANTA) - Final, Resulted Physical Exam HEENT: Neck Supple W Full Motion Chest: Symmetric LUNGS: Other (diminished bases) Heart: RRR (SR) Abdomen: Soft N/T Extremities: No Calf Tenderness Neurology: alert, oriented, follow commands Assessment Assessment 1. Syncope and presyncopal episodes with nontraumatic multiple falls: due to orthostasis 2. Orthostasis: more likely with autonomic neuropathy 3. CKD4?: nephrology consulted 4. Right foot wound with PAD/DM with poor wound healing: LE arterial duplex noted no claudication symptoms. 5. UTI? per PCP 6. DM: insulin dependent 7. Normocytic anemia Recommendations 1. Will need nephrology consult. Given her renal dysfunction she will need further renal workup prior to any attempts of LE angiogram which could be done as an outpt 2. Start on low dose midodrine. mechanical compression. No small size for abd binder. 3. ASA and statin. Push fluids. PRERNA CARIAS APRN Dec 29, 2018 10:58
--- NOTE | 2018-12-29 11:34 | PDOC2 ---
CONSULT Date of Consult Date of Consult DATE: 12/29/18 TIME: 11:28 Reason for Consult Reason for Consult: RENAL FAILURE Referring Physician Referring Physician: SAM Identification/Chief Complaint Chief Complaint THIS IS A 73 YR OLD WITH DIZZINESS AND POSSIBLE SYNCOPE. CARDIOLOGY EVALUATION IS ONGOING AT THIS TIME AND SHE SEEM TO HAVE ORTHOSTASIS WELL. SHE IS ALSO DEALING WITH A DFU RIGHT FOOT AND UNDERGOING WOUND CARE AND ANTIBIOTICS. THERE IS CONCERN OF POSSIBLE PAD AND SHE MAY AT SOME POINT NEED AND ARTERIOGRAM. RENAL CONSULT WAS ASKED DUE TO HER CR OF ABOUT 2.0-2.5. UPON REVIEW OF HER RECORDS THIS APPEARS TO BE CHRONIC DUE TO DM II AND HTN AND SHE HAS AT LEAST STAGE 3B TO STAGE 4 CKD. NO NEPHROTOXINS NOTED. Source Source: Chart review History of Present Illness Reason for Visit: ABOVE Past Medical History Cardiovascular: Other Pulmonary: No pertinent hx CENTRAL NERVOUS SYSTEM: Other (RLS) Heme/Onc: No pertinent hx Hepatobiliary: No pertinent hx Psych: No pertinent hx Musculoskeletal: Osteoarthritis Rheumatologic: No pertinent hx Infectious disease: No pertinent hx ENT: No pertinent hx Endocrine: Diabetes (2) Past Surgical History Past Surgical History: Tonsillectomy, Hysterectomy, Other (right great toe amputation r/t osteomyelitis; right ankle repair) Social History No ALCOHOL: none Drugs: None Lives: with Family Current Problem List Problem List Problems Medical Problems: (1) Acute on chronic renal failure Status: Acute (2) Altered mental status Status: Acute Current Medications Current Medications Current Medications Sodium Chloride 1,000 ml @ 1,000 mls/hr 1X ONCE IV Last administered on at 10:08; Start 12/25/18 at 09:30; Stop 12/25/18 at 10:29; Status DC Lorazepam (Ativan) 1 mg 1X ONCE IV Last administered on 12/25/18at 13:50; Start 12/25/18 at 11:30; Stop 12/25/18 at 11:31; Status DC Ondansetron HCl (Zofran) 4 mg PRN Q8HRS PRN IV NAUSEA/VOMITING; Start 12/25/18 at 13:45; Stop 12/26/18 at 13:44; Status DC Insulin Human Lispro (HumaLOG) 0-5 UNITS TIDWMEALS SQ Last administered on 12/29at 08:51; Start 12/25/18 at 17:00 Dextrose (Dextrose 50%-Water Syringe) 12.5 gm PRN Q15MIN PRN IV SEE COMMENTS; Start 12/25/18 at 13:45 Lorazepam (Ativan) 1 mg PRN Q6HRS PRN IV ANXIETY / AGITATION; Start 12/25/18 at 19:00 Acetaminophen (Tylenol) 650 mg PRN Q6HRS PRN PO headache; Start 12/25/18 at 21: 15 Acetaminophen (Tylenol) 650 mg QID PRN PO PAIN; Start 12/27/18 at 10:45; Stop 12/27/18 at 10:45; Status DC Acetaminophen/ Hydrocodone Bitart (Lortab 5/325) 1 tab PRN Q4HRS PRN PO MODERATE PAIN; Start 12/27/18 at 10:45 Linagliptin (Tradjenta) 5 mg DAILY PO Last administered on 12/29/18at 08:46; Start 12/27/18 at 11:30 Non-Formulary Medication (Fluticasone/ Salmeterol (Advair 250-50 Diskus)) 1 spray BID IN ; Start 12/27/18 at 21:00; Status UNV Pantoprazole Sodium (Protonix) 40 mg DAILYAC PO Last administered on 12/29/18at 08:46; Start 12/27/18 at 11:30 Ondansetron HCl (Zofran Odt) 4 mg Q6HRS PO Last administered on 12/28/18at 20:48 ; Start 12/27/18 at 12:00 Pramipexole Dihydrochloride (miraPEX) 0.5 mg QHS PO Last administered on at 20:36; Start 12/27/18 at 21:00 Budesonide (Pulmicort) 0.5 mg RTBID NEB ; Start 12/27/18 at 12:00; Stop at 13:37; Status DC Albuterol Sulfate (Ventolin Neb Soln) 2.5 mg RTQID NEB ; Start 12/27/18 at 12:00 ; Stop 12/27/18 at 13:37; Status DC Albuterol Sulfate (Ventolin Neb Soln) 2.5 mg PRN Q4HRS PRN NEB SHORTNESS OF BREATH; Start 12/27/18 at 13:45 Nystatin (Mycostatin) 1 julián BID TP Last administered on 12/28/18at 20:44; Start 12/28/18 at 09:00 Active Scripts Active Tylenol (Acetaminophen) 325 Mg Tablet 1-2 Tab PO QID Bactrim Ds Tablet (Sulfamethoxazole/Trimethoprim) 1 Each Tablet 1 Tab PO BID Levsin (Hyoscyamine Sulfate) 0.125 Mg Tablet 0.125 Mg PO QID Lactulose 20 Gm/30 Ml Solution 20 Gm PO BID Zofran (Ondansetron Hcl) 4 Mg Tablet 1 Tab PO Q6HRS Tradjenta (Linagliptin) 5 Mg Tablet 5 Mg PO DAILY 30 Days Lactulose 20 Gm/30 Ml Solution 20 Gm PO BID PRN Hydrocodone-Apap 5-325 (Hydrocodone Bit/Acetaminophen) 1 Each Tablet 1 Tab PO PRN Q4HRS PRN 30 Days Reported Humalog (Insulin Lispro) 100 Unit/1 Ml Insuln.pen 0 SQ TIDWMEALHC blood sugar less than 150 no insulin. 150-199 2 units 200-249 4 units 250-299 7 units 300-349 10 units 350 or more 12 units Advair 250-50 Diskus (Fluticasone/Salmeterol) 1 Each Disk.w.dev 1 [place] IN BID Mirapex (Pramipexole Di-Hcl) 0.5 Mg Tablet 0.5 Tab PO HS Omeprazole 20 Mg Capsule.dr 20 Mg PO DAILY Citalopram Hbr (Citalopram Hydrobromide) 10 Mg Tablet 10 Mg PO HS Allergies Allergies: Coded Allergies: Tetanus Vaccines and Toxoid (Verified Allergy, Severe, SWELLING, 08/19/18) wool (Verified Allergy, Severe, RASH, 08/19/18) peach (Verified Allergy, Intermediate, Rash, 08/22/18) ROS General: YES: Fatigue, Appetite PSYCHOLOGICAL ROS: YES: Anxiety Eyes: Yes Decreased vision HEENT: YES: [place] Respiratory: YES: Cough Genitourinary: YES Other (NOCTURIA) Musculoskeletal: Yes Muscular Weakness Neurological: Yes Dizziness, Yes Weakness Skin: Yes Dry Skin Physical Exam General: Alert, Oriented X3, Cooperative, No acute distress HEENT: Atraumatic, PERRLA Lungs: Normal air movement Heart: Regular rate Abdomen: Normal bowel sounds, Soft, No tenderness Extremities: No clubbing, No edema Skin: No breakdown Neuro: Normal speech, Cranial nerves 3-12 NL Psych/Mental Status: Mental status NL, Mood NL MUSCULOSKELETAL: No joint tenderness, No deformity, No swelling Vitals VITALS Vital Signs Date Time Temp Pulse Resp B/P (MAP) Pulse Ox O2 Delivery O2 Flow Rate FiO2 12/29/18 10:54 98.1 87 18 90/44 (59) 96 Room Air 98.1 Labs Labs Laboratory Tests Test 12/27/18 11:58 12/27/18 16:57 12/27/18 19:26 12/28/18 07:03 Glucose (Fingerstick) 231 mg/dL (70-99) 177 mg/dL (70-99) 163 mg/dL (70-99) 143 mg/dL (70-99) Test 12/28/18 11:44 12/28/18 15:00 12/28/18 16:44 12/28/18 20:41 Glucose (Fingerstick) 172 mg/dL (70-99) 156 mg/dL (70-99) 164 mg/dL (70-99) Sodium Level 144 mmol/L (136-145) Potassium Level 4.9 mmol/L (3.5-5.1) Chloride Level 104 mmol/L (98-107) Carbon Dioxide Level 33 mmol/L (21-32) Anion Gap 7 (6-14) Blood Urea Nitrogen 37 mg/dL (7-20) Creatinine 2.5 mg/dL (0.6-1.0) Estimated GFR (Cockcroft-Gault) 18.9 Glucose Level 178 mg/dL (70-99) Calcium Level 9.5 mg/dL (8.5-10.1) Magnesium Level 2.0 mg/dL (1.8-2.4) Cortisol PM Sample 11.4 ug/dL (3.1-16.7) Test 12/29/18 07:20 Glucose (Fingerstick) 167 mg/dL (70-99) Laboratory Tests Test 12/28/18 11:44 12/28/18 15:00 12/28/18 16:44 12/28/18 20:41 Glucose (Fingerstick) 172 mg/dL (70-99) 156 mg/dL (70-99) 164 mg/dL (70-99) Sodium Level 144 mmol/L (136-145) Potassium Level 4.9 mmol/L (3.5-5.1) Chloride Level 104 mmol/L (98-107) Carbon Dioxide Level 33 mmol/L (21-32) Anion Gap 7 (6-14) Blood Urea Nitrogen 37 mg/dL (7-20) Creatinine 2.5 mg/dL (0.6-1.0) Estimated GFR (Cockcroft-Gault) 18.9 Glucose Level 178 mg/dL (70-99) Calcium Level 9.5 mg/dL (8.5-10.1) Magnesium Level 2.0 mg/dL (1.8-2.4) Cortisol PM Sample 11.4 ug/dL (3.1-16.7) Test 12/29/18 07:20 Glucose (Fingerstick) 167 mg/dL (70-99) Assessment/Plan Assessment/Plan IMP CKD STAGE 3B TO STAGE 4 D M II HTN ANEMIA DFU RLE ORTHOSTASIS AND RELATED SYNCOPE-CORTISOL ADEQUATE PLAN SUGGEST HYDRATION WITH SALINE IF ANGIO NEEDED ALSO CONSIDER LIBERALIZING SALT INTAKE WILL FOLLOW TROY AKBAR MD Dec 29, 2018 11:34
[2018-12-29 11:55] LABS: HEMOGLOBIN 8.3 g/dL (12.0-15.5); RED BLOOD COUNT 3.08 x10^6/uL (3.50-5.40); WHITE BLOOD COUNT 8.1 x10^3/uL (4.0-11.0)
[2018-12-29 12:01] LABS: CALCIUM 9.3 mg/dL (8.5-10.1); CREATININE 2.6 mg/dL (0.6-1.0)
[2018-12-29 12:02] LABS: POTASSIUM 5.2 mmol/L (3.5-5.1)
[2018-12-29 12:06] LABS: CHOLESTEROL/HDL RATIO 5.6
[2018-12-29] MEDS: NYSTATIN 100,000 UNIT/GM TOPICAL CREAM 15GM TUBE. TP SCH ×2 (12:43→21:15)
[2018-12-29] MEDS: ASPIRIN ENTERIC COATED 81 MG TABLET.DR. PO SCH (16:47)
[2018-12-29] MEDS: MIDODRINE 2.5 MG TABLET PO SCH (16:47)
[2018-12-29] MEDS: ATORVASTATIN CALCIUM 20 MG TABLET PO SCH (21:15)
[2018-12-29] MEDS: PRAMIPEXOLE 0.25 MG TABLET. PO SCH (21:15)
[2018-12-30 03:15] VITALS: BP 132/71
[2018-12-30 05:58] LABS: CALCIUM 9.3 mg/dL (8.5-10.1); CREATININE 2.6 mg/dL (0.6-1.0); POTASSIUM 4.3 mmol/L (3.5-5.1)
[2018-12-30 07:12] VITALS: BP 109/40
[2018-12-30] MEDS: ONDANSETRON ODT 4 MG TAB.RAPDIS. PO SCH ×3 (08:17→17:56)
[2018-12-30] MEDS: LINAGLIPTIN 5 MG TABLET PO SCH (08:17)
[2018-12-30] MEDS: ASPIRIN ENTERIC COATED 81 MG TABLET.DR. PO SCH (08:17)
[2018-12-30] MEDS: MIDODRINE 2.5 MG TABLET PO SCH ×2 (08:17→17:57)
[2018-12-30] MEDS: PANTOPRAZOLE 40 MG TABLET.DR. PO SCH (08:18)
[2018-12-30] MEDS: INSULIN LISPRO 300 UNITS/3 ML INSULN.PEN. SQ SCH ×3 (08:29→17:00)
[2018-12-30] MEDS: NYSTATIN 100,000 UNIT/GM TOPICAL CREAM 15GM TUBE. TP SCH ×2 (09:00→20:51)
--- NOTE | 2018-12-30 10:29 | PDOC ---
Provider Note Provider Note vss, bp labile- no new sxs- labs same, urine show psa- will add daily cipro pending cult- alert, no sign of sepsis- maybe RLE angio next re wound- SIRISHA PEÑA MD Dec 30, 2018 10:29
--- NOTE | 2018-12-30 10:36 | PDOC ---
Provider Note Provider Note resume home med celaxa- B12 low 218 09/03, will do mma re anemia, add B12 pending result- mcv ok SIRISHA PEÑA MD Dec 30, 2018 10:36
[2018-12-30 10:38] VITALS: BP 107/56
--- NOTE | 2018-12-30 11:37 | PDOC ---
Renal-Progress Notes Subjective Notes Notes NOTHING NEW History of Present Illness Hx of present illness STABLE Vitals Vitals Vital Signs Date Time Temp Pulse Resp B/P (MAP) Pulse Ox O2 Delivery O2 Flow Rate FiO2 12/30/18 10:38 98.1 91 18 107/56 (73) 100 Room Air 98.1 Weight Weight [ ] I.O. Intake and Output Intake and Output 12/30/18 07:00 Intake Total 1400 ml Balance 1400 ml Intake Oral 1400 ml # Voids 7 Labs Labs Laboratory Tests Test 12/29/18 11:48 12/29/18 16:28 12/29/18 20:48 12/30/18 04:18 Glucose (Fingerstick) 171 mg/dL (70-99) 158 mg/dL (70-99) 187 mg/dL (70-99) Sodium Level 142 mmol/L (136-145) Potassium Level 4.3 mmol/L (3.5-5.1) Chloride Level 103 mmol/L (98-107) Carbon Dioxide Level 29 mmol/L (21-32) Anion Gap 10 (6-14) Blood Urea Nitrogen 37 mg/dL (7-20) Creatinine 2.6 mg/dL (0.6-1.0) Estimated GFR (Cockcroft-Gault) 18.0 Glucose Level 181 mg/dL (70-99) Calcium Level 9.3 mg/dL (8.5-10.1) Test 12/30/18 07:21 12/30/18 11:24 Glucose (Fingerstick) 162 mg/dL (70-99) 177 mg/dL (70-99) Micro Micro Microbiology 12/27/18 Urine Culture - Preliminary, Resulted 12/27/18 Urine Culture Result 1 (JOLANTA) - Preliminary, Resulted 12/26/18 Anaerobic/Aerobic Culture - Preliminary, Resulted 12/26/18 Anaerobic Culture Result 1 (JOLANTA) - Preliminary, Resulted 12/26/18 Aerobic Culture - Final, Resulted 12/26/18 Aerobic Culture Result 1 (JOLANTA) - Final, Resulted 12/26/18 Gram Stain - Final, Resulted 12/26/18 Gram Stain Result 1 (JOLANTA) - Final, Resulted 12/26/18 Gram Stain Result 2 (JOLANTA) - Final, Resulted Review of Systems Constitutional: yes: alert, oriented Eyes: Yes: no symptom reported Pulmonary: Yes no symptom reported Cardiovascular: Yes lt headedness Gastrointestional: Yes: no symptom reported Genitourinary: Yes: no symptom reported Musculoskeletal: Yes: no symptom reported Skin: Yes no symptom reported Psychiatric/Neurological: Yes: no symptom reported Endocrine: Yes: no symptom reported Physical Exam General Appearance: no apparent distress Skin: warm Respiratory: decreased breath sounds Heart: S1S2, RRR Abdomen: soft, bowel sounds present Genitourinary: bladder flat Neurology: alert, oriented, follow commands Assessment Assessment IMP CKD STAGE 3B TO STAGE 4-CR STABLE AT 2.6 D M II HTN ANEMIA DFU RLE ORTHOSTASIS AND RELATED SYNCOPE-CORTISOL ADEQUATE PLAN SUGGEST HYDRATION WITH SALINE IF ANGIO NEEDED ALSO CONSIDER LIBERALIZING SALT INTAKE WILL FOLLOW TROY AKBAR MD Dec 30, 2018 11:37
[2018-12-30] MEDS: CIPROFLOXACIN HCL 250 MG TABLET. PO SCH (12:26)
[2018-12-30] MEDS: CYANOCOBALAMIN (VITAMIN B-12) 1,000 MCG/ML VIAL SQ SCH (12:27)
[2018-12-30 14:42] VITALS: BP 114/43
[2018-12-30 19:51] VITALS: BP 169/65
[2018-12-30] MEDS: ATORVASTATIN CALCIUM 20 MG TABLET PO SCH (20:50)
[2018-12-30] MEDS: CITALOPRAM 10 MG TABLET. PO SCH (20:50)
[2018-12-30] MEDS: PRAMIPEXOLE 0.25 MG TABLET. PO SCH (20:51)
[2018-12-30 23:50] VITALS: BP 138/59
[2018-12-31 03:36] VITALS: BP 148/65
[2018-12-31] MEDS: ONDANSETRON ODT 4 MG TAB.RAPDIS. PO SCH ×4 (06:11→17:38)
[2018-12-31 07:03] VITALS: BP 135/63
[2018-12-31] MEDS: ASPIRIN ENTERIC COATED 81 MG TABLET.DR. PO SCH (08:38)
[2018-12-31] MEDS: PANTOPRAZOLE 40 MG TABLET.DR. PO SCH (08:38)
[2018-12-31] MEDS: LINAGLIPTIN 5 MG TABLET PO SCH (08:39)
[2018-12-31] MEDS: MIDODRINE 2.5 MG TABLET PO SCH ×2 (08:39→17:38)
[2018-12-31] MEDS: INSULIN LISPRO 300 UNITS/3 ML INSULN.PEN. SQ SCH ×3 (08:46→17:43)
[2018-12-31] MEDS: NYSTATIN 100,000 UNIT/GM TOPICAL CREAM 15GM TUBE. TP SCH ×2 (09:00→20:16)
--- NOTE | 2018-12-31 09:31 | PDOC ---
Provider Note Provider Note vss, glucose good , no new sxs or findings- u cult shows cipro sensitive, mma level pending, on daily B12 for now - may need R LE arteriogram, renal issues SIRISHA PEÑA MD Dec 31, 2018 09:31
[2018-12-31 09:44] LABS: CALCIUM 8.9 mg/dL (8.5-10.1); CREATININE 2.7 mg/dL (0.6-1.0); GFR 17.3; POTASSIUM 4.3 mmol/L (3.5-5.1)
[2018-12-31 10:40] VITALS: BP 127/54
--- NOTE | 2018-12-31 11:53 | PDOC ---
Renal-Progress Notes Subjective Notes Notes NOTHING NEW History of Present Illness Hx of present illness STABLE Vitals Vitals Vital Signs Date Time Temp Pulse Resp B/P (MAP) Pulse Ox O2 Delivery O2 Flow Rate FiO2 12/31/18 10:40 97.9 79 17 127/54 (78) 99 Room Air 97.9 Weight Weight [ ] I.O. Intake and Output Intake and Output 12/31/18 06:59 Intake Total 1360 ml Balance 1360 ml Intake Oral 1360 ml # Voids 8 Labs Labs Laboratory Tests Test 12/30/18 16:21 12/30/18 20:20 12/31/18 03:02 12/31/18 06:56 Glucose (Fingerstick) 169 mg/dL (70-99) 164 mg/dL (70-99) 161 mg/dL (70-99) 183 mg/dL (70-99) Test 12/31/18 09:00 Sodium Level 139 mmol/L (136-145) Potassium Level 4.3 mmol/L (3.5-5.1) Chloride Level 102 mmol/L (98-107) Carbon Dioxide Level 27 mmol/L (21-32) Anion Gap 10 (6-14) Blood Urea Nitrogen 38 mg/dL (7-20) Creatinine 2.7 mg/dL (0.6-1.0) Estimated GFR (Cockcroft-Gault) 17.3 Glucose Level 233 mg/dL (70-99) Calcium Level 8.9 mg/dL (8.5-10.1) Micro Micro Microbiology 12/27/18 Urine Culture - Final, Complete 12/27/18 Urine Culture Result 1 (JOLANTA) - Final, Complete 12/27/18 Antimicrobic Susceptibility - Final, Complete 12/26/18 Anaerobic/Aerobic Culture - Preliminary, Resulted 12/26/18 Anaerobic Culture Result 1 (JOLANTA) - Preliminary, Resulted 12/26/18 Aerobic Culture - Final, Resulted 12/26/18 Aerobic Culture Result 1 (JOLANTA) - Final, Resulted 12/26/18 Gram Stain - Final, Resulted 12/26/18 Gram Stain Result 1 (JOLANTA) - Final, Resulted 12/26/18 Gram Stain Result 2 (JOLANTA) - Final, Resulted Review of Systems Constitutional: yes: alert, oriented Eyes: Yes: no symptom reported Pulmonary: Yes no symptom reported Cardiovascular: Yes lt headedness Gastrointestional: Yes: no symptom reported Genitourinary: Yes: no symptom reported Musculoskeletal: Yes: no symptom reported Skin: Yes no symptom reported Psychiatric/Neurological: Yes: no symptom reported Endocrine: Yes: no symptom reported Physical Exam General Appearance: no apparent distress Skin: warm Respiratory: decreased breath sounds Heart: S1S2, RRR Abdomen: soft, bowel sounds present Genitourinary: bladder flat Neurology: alert, oriented, follow commands Assessment Assessment IMP CKD STAGE 3B TO STAGE 4-CR STABLE AT 2.6 D M II HTN ANEMIA DFU RLE ORTHOSTASIS AND RELATED SYNCOPE-CORTISOL ADEQUATE PLAN SUGGEST HYDRATION WITH SALINE IF ANGIO NEEDED ALSO CONSIDER LIBERALIZING SALT INTAKE WILL FOLLOW NEEDED TROY AKBAR MD Dec 31, 2018 11:53
[2018-12-31] MEDS: CIPROFLOXACIN HCL 250 MG TABLET. PO SCH (12:18)
[2018-12-31] MEDS: CYANOCOBALAMIN (VITAMIN B-12) 1,000 MCG/ML VIAL SQ SCH (12:18)
[2018-12-31 14:47] VITALS: BP 133/68
[2018-12-31 19:55] VITALS: BP 176/68
[2018-12-31] MEDS: PRAMIPEXOLE 0.25 MG TABLET. PO SCH (20:16)
[2018-12-31] MEDS: LACTOBACILLUS RHAMNOSUS GG 1 CAPSULE. PO SCH (20:16)
[2018-12-31] MEDS: ATORVASTATIN CALCIUM 20 MG TABLET PO SCH (20:16)
[2018-12-31] MEDS: CITALOPRAM 10 MG TABLET. PO SCH (20:16)
[2018-12-31 23:51] VITALS: BP 142/59
[2019-01-01 03:05] VITALS: BP 149/55
[2019-01-01] MEDS: ONDANSETRON ODT 4 MG TAB.RAPDIS. PO SCH ×4 (05:33→17:38)
[2019-01-01 06:11] LABS: CALCIUM 9.1 mg/dL (8.5-10.1); CREATININE 2.5 mg/dL (0.6-1.0); GFR 18.9; POTASSIUM 4.2 mmol/L (3.5-5.1)
[2019-01-01 08:00] VITALS: BP 127/63
[2019-01-01] MEDS: PANTOPRAZOLE 40 MG TABLET.DR. PO SCH (08:32)
[2019-01-01] MEDS: ASPIRIN ENTERIC COATED 81 MG TABLET.DR. PO SCH (08:32)
[2019-01-01] MEDS: LACTOBACILLUS RHAMNOSUS GG 1 CAPSULE. PO SCH ×2 (08:32→19:58)
[2019-01-01] MEDS: LINAGLIPTIN 5 MG TABLET PO SCH (08:32)
[2019-01-01] MEDS: MIDODRINE 2.5 MG TABLET PO SCH ×2 (08:35→12:34)
[2019-01-01] MEDS: INSULIN LISPRO 300 UNITS/3 ML INSULN.PEN. SQ SCH ×3 (08:41→17:38)
[2019-01-01] MEDS: NYSTATIN 100,000 UNIT/GM TOPICAL CREAM 15GM TUBE. TP SCH ×2 (08:42→19:59)
[2019-01-01 11:00] VITALS: BP 126/54
--- NOTE | 2019-01-01 12:02 | NUR ---
SW following pt. Spoke with pt again regarding PT/OT recommendation for SNU and pt is still declining SNU. Pt wants to go home with Home health services. Discussed with RN.
[2019-01-01] MEDS: CIPROFLOXACIN HCL 250 MG TABLET. PO SCH (12:35)
[2019-01-01] MEDS: CYANOCOBALAMIN (VITAMIN B-12) 1,000 MCG/ML VIAL SQ SCH (12:35)
--- NOTE | 2019-01-01 13:08 | PDOC ---
SUBJECTIVE ROS Stable OBJECTIVE Vital Signs Vital Signs Date Time Temp Pulse Resp B/P (MAP) Pulse Ox O2 Delivery O2 Flow Rate FiO2 01/01/19 12:34 80 126/54 01/01/19 11:00 98.0 18 98 Room Air 98.0 I & 0 Intake and Output 01/01/19 07:00 Intake Total 1080 ml Output Total 100 ml Balance 980 ml Intake Oral 1080 ml Output Urine Total 100 ml # Voids 7 # Bowel Movements 1 PHYSICAL EXAM Physical Exam General Appearance: no apparent distress Skin: warm Respiratory: decreased breath sounds Heart: S1S2, RRR Abdomen: soft, bowel sounds present Genitourinary: No [facility]: alert, oriented, follow commands DIAGNOSIS/ASSESSMENT Assessment & Plan CKD STAGE 3B TO STAGE 4-CR STABLE AT 2.6 D M II HTN ANEMIA DFU RLE ORTHOSTASIS AND RELATED SYNCOPE-CORTISOL ADEQUATE PLAN SUGGEST HYDRATION WITH SALINE IF ANGIO NEEDED ALSO CONSIDER LIBERALIZING SALT INTAKE WILL FOLLOW NEEDED COMMENT/RELEVANT DATA Meds Current Medications Medications (Trade) Dose Ordered Sig/Steph Start Time Stop Time Status Last Admin Dose Admin Acetaminophen (Tylenol) 650 mg QID PRN 12/27/18 10:45 12/27/18 10:45 DC Acetaminophen/ Hydrocodone Bitart (Lortab 5/325) 1 tab PRN Q4HRS PRN 12/27/18 10:45 Albuterol Sulfate (Ventolin Neb Soln) 2.5 mg PRN Q4HRS PRN 12/27/18 13:45 Aspirin (Ecotrin) 81 mg DAILYWBKFT 12/29/18 16:00 01/01/19 08:32 81 MG Atorvastatin Calcium (Lipitor) 20 mg QHS 12/29/18 21:00 12/31/18 20:16 20 MG Budesonide (Pulmicort) 0.5 mg RTBID 12/27/18 12:00 12/27/18 13:37 DC Ciprofloxacin (Cipro) 250 mg DAILYBFRLUN 12/30/18 11:30 01/01/19 12:35 250 MG Citalopram Hydrobromide (CeleXA) 10 mg HS 12/30/18 21:00 12/31/18 20:16 10 MG Cyanocobalamin (Vitamin B-12) 1,000 mcg DAILY10 12/30/18 12:00 01/04/19 08:00 01/01/19 12:35 1,000 MCG Dextrose (Dextrose 50%-Water Syringe) 12.5 gm PRN Q15MIN PRN 12/25/18 13:45 Insulin Human Lispro (HumaLOG) 0-5 UNITS TIDWMEALS 12/25/18 17:00 01/01/19 12:46 2 UNITS Lactobacillus Rhamnosus (Culturelle) 1 cap BID 12/31/18 21:00 01/01/19 08:32 1 CAP Linagliptin (Tradjenta) 5 mg DAILY 12/27/18 11:30 01/01/19 08:32 5 MG Lorazepam (Ativan) 1 mg PRN Q6HRS PRN 12/25/18 19:00 Midodrine (Proamatine) 2.5 mg BID94 12/29/18 16:00 01/01/19 12:34 2.5 MG Non-Formulary Medication (Fluticasone/ Salmeterol (Advair 250-50 Diskus)) 1 spray BID 12/27/18 21:00 UNV Nystatin (Mycostatin) 1 julián BID 12/28/18 09:00 01/01/19 08:42 1 JULIÁN Ondansetron HCl (Zofran Odt) 4 mg Q6HRS 12/27/18 12:00 01/01/19 05:33 4 MG Ondansetron HCl (Zofran) 4 mg PRN Q8HRS PRN 12/25/18 13:45 12/26/18 13:44 DC Pantoprazole Sodium (Protonix) 40 mg DAILYAC 12/27/18 11:30 01/01/19 08:32 40 MG Pramipexole Dihydrochloride (miraPEX) 0.5 mg QHS 12/27/18 21:00 12/31/18 20:16 0.5 MG Sodium Chloride 1,000 ml @ 1,000 mls/hr 1X ONCE 12/25/18 09:30 12/25/18 10:29 DC 12/25/18 10:08 1,000 MLS/HR Lab Laboratory Tests Test 12/31/18 16:32 12/31/18 20:55 01/01/19 04:26 01/01/19 08:14 Glucose (Fingerstick) 153 mg/dL (70-99) 181 mg/dL (70-99) 160 mg/dL (70-99) Sodium Level 140 mmol/L (136-145) Potassium Level 4.2 mmol/L (3.5-5.1) Chloride Level 103 mmol/L (98-107) Carbon Dioxide Level 29 mmol/L (21-32) Anion Gap 8 (6-14) Blood Urea Nitrogen 38 mg/dL (7-20) Creatinine 2.5 mg/dL (0.6-1.0) Estimated GFR (Cockcroft-Gault) 18.9 Glucose Level 177 mg/dL (70-99) Calcium Level 9.1 mg/dL (8.5-10.1) Test 01/01/19 12:02 Glucose (Fingerstick) 158 mg/dL (70-99) Results All relevant outside records, renal labs, imaging studies, telemetry/EKG's were reviewed. CHAY ORTIZ MD Jan 01, 2019 13:08
[2019-01-01 15:00] VITALS: BP 150/62
[2019-01-01 19:15] VITALS: BP 137/59
[2019-01-01] MEDS: HYDROcodone/APAP 5/325MG 1 TAB TABLET PO PRN (19:57)
[2019-01-01] MEDS: PRAMIPEXOLE 0.25 MG TABLET. PO SCH (19:57)
[2019-01-01] MEDS: ATORVASTATIN CALCIUM 20 MG TABLET PO SCH (19:58)
[2019-01-01] MEDS: CITALOPRAM 10 MG TABLET. PO SCH (19:58)
--- NOTE | 2019-01-01 22:00 | PDOC ---
GENERAL General: vss and afebrile. awake and alert. still very lightheaded when getting up. better if sits for a few minutes before trying to stand. still with marked orthostasis and will increase midodrine. chest clear, heart regular, abdomen benign. no further syncope. feel probably will need snu [place]. VITAL SIGNS Vital Signs: Vital Signs Date Time Temp Pulse Resp B/P (MAP) Pulse Ox O2 Delivery O2 Flow Rate FiO2 01/01/19 20:57 Room Air 01/01/19 19:15 98.4 79 18 137/59 (85) 96 98.4 I & O I & O Intake and Output 01/01/19 07:00 Intake Total 1080 ml Output Total 100 ml Balance 980 ml Intake Oral 1080 ml Output Urine Total 100 ml # Voids 7 # Bowel Movements 1 ALLERGIES Allergies: Allergies Coded Allergies Type Severity Reaction Last Updated Verified Tetanus Vaccines and Toxoid Allergy Severe SWELLING 08/19/18 Yes wool Allergy Severe RASH 08/19/18 Yes peach Allergy Intermediate Rash 08/22/18 Yes MEDS Medications: Current Medications Medications (Trade) Dose Ordered Sig/Steph Start Time Stop Time Status Last Admin Dose Admin Acetaminophen (Tylenol) 650 mg QID PRN 12/27/18 10:45 12/27/18 10:45 DC Acetaminophen/ Hydrocodone Bitart (Lortab 5/325) 1 tab PRN Q4HRS PRN 12/27/18 10:45 01/01/19 19:57 1 TAB Albuterol Sulfate (Ventolin Neb Soln) 2.5 mg PRN Q4HRS PRN 12/27/18 13:45 Aspirin (Ecotrin) 81 mg DAILYWBKFT 12/29/18 16:00 01/01/19 08:32 81 MG Atorvastatin Calcium (Lipitor) 20 mg QHS 12/29/18 21:00 01/01/19 19:58 20 MG Budesonide (Pulmicort) 0.5 mg RTBID 12/27/18 12:00 12/27/18 13:37 DC Ciprofloxacin (Cipro) 250 mg DAILYBFRLUN 12/30/18 11:30 01/01/19 12:35 250 MG Citalopram Hydrobromide (CeleXA) 10 mg HS 12/30/18 21:00 01/01/19 19:58 10 MG Cyanocobalamin (Vitamin B-12) 1,000 mcg DAILY10 12/30/18 12:00 01/04/19 08:00 01/01/19 12:35 1,000 MCG Dextrose (Dextrose 50%-Water Syringe) 12.5 gm PRN Q15MIN PRN 12/25/18 13:45 Insulin Human Lispro (HumaLOG) 0-5 UNITS TIDWMEALS 12/25/18 17:00 01/01/19 17:38 2 UNITS Lactobacillus Rhamnosus (Culturelle) 1 cap BID 12/31/18 21:00 01/01/19 19:58 1 CAP Linagliptin (Tradjenta) 5 mg DAILY 12/27/18 11:30 01/01/19 08:32 5 MG Lorazepam (Ativan) 1 mg PRN Q6HRS PRN 12/25/18 19:00 Midodrine (Proamatine) 2.5 mg BID94 12/29/18 16:00 01/01/19 12:34 2.5 MG Non-Formulary Medication (Fluticasone/ Salmeterol (Advair 250-50 Diskus)) 1 spray BID 12/27/18 21:00 UNV Nystatin (Mycostatin) 1 julián BID 12/28/18 09:00 01/01/19 19:59 1 JULIÁN Ondansetron HCl (Zofran Odt) 4 mg Q6HRS 12/27/18 12:00 01/01/19 05:33 4 MG Ondansetron HCl (Zofran) 4 mg PRN Q8HRS PRN 12/25/18 13:45 12/26/18 13:44 DC Pantoprazole Sodium (Protonix) 40 mg DAILYAC 12/27/18 11:30 01/01/19 08:32 40 MG Pramipexole Dihydrochloride (miraPEX) 0.5 mg QHS 12/27/18 21:00 01/01/19 19:57 0.5 MG Sodium Chloride 1,000 ml @ 1,000 mls/hr 1X ONCE 12/25/18 09:30 12/25/18 10:29 DC 12/25/18 10:08 1,000 MLS/HR LAB Lab: Laboratory Tests Test 01/01/19 04:26 01/01/19 08:14 01/01/19 12:02 01/01/19 16:57 Sodium Level 140 mmol/L (136-145) Potassium Level 4.2 mmol/L (3.5-5.1) Chloride Level 103 mmol/L (98-107) Carbon Dioxide Level 29 mmol/L (21-32) Anion Gap 8 (6-14) Blood Urea Nitrogen 38 mg/dL (7-20) Creatinine 2.5 mg/dL (0.6-1.0) Estimated GFR (Cockcroft-Gault) 18.9 Glucose Level 177 mg/dL (70-99) Calcium Level 9.1 mg/dL (8.5-10.1) Glucose (Fingerstick) 160 mg/dL (70-99) 158 mg/dL (70-99) 183 mg/dL (70-99) Test 01/01/19 21:30 Glucose (Fingerstick) 155 mg/dL (70-99) HAMMAD VARGAS MD Jan 01, 2019 22:00
[2019-01-01 23:15] VITALS: BP 167/73
[2019-01-02] MEDS: HYDROcodone/APAP 5/325MG 1 TAB TABLET PO PRN ×3 (00:12→21:15)
[2019-01-02] MEDS: ONDANSETRON ODT 4 MG TAB.RAPDIS. PO SCH ×4 (00:12→17:30)
[2019-01-02 03:15] VITALS: BP 154/66
[2019-01-02 07:15] VITALS: BP 153/63
[2019-01-02] MEDS: LACTOBACILLUS RHAMNOSUS GG 1 CAPSULE. PO SCH ×2 (08:46→21:16)
[2019-01-02] MEDS: PANTOPRAZOLE 40 MG TABLET.DR. PO SCH (08:46)
[2019-01-02] MEDS: ASPIRIN ENTERIC COATED 81 MG TABLET.DR. PO SCH (08:46)
[2019-01-02] MEDS: LINAGLIPTIN 5 MG TABLET PO SCH (08:47)
[2019-01-02] MEDS: INSULIN LISPRO 300 UNITS/3 ML INSULN.PEN. SQ SCH ×3 (08:54→17:29)
--- NOTE | 2019-01-02 09:11 | DISCH ---
DISCHARGE WITH HOME HEALTH DISCHARGE INFORMATION: Discharge Date: Jan 02, 2019 Final Diagnosis: Problems Medical Problems: (1) Acute on chronic renal failure Status: Acute (2) Altered mental status Status: Acute Condition on Discharge: Stable CODE STATUS: Code Status: Full HOME HEALTH: Face to Face: I certify this patient is under my care and that I, or a nurse practitioner or physician's events and promotions assistant working with me, had a face to face encounter that meets the physician face to face encounter requirements with this patient on 01/02/19. Assisted For: Admin/Educate Injections, Assess Cardiopulm Status, Assess & Educate Safety, Assess/Skilled Observatio, Diabetic Care, Medication Management Physical Therapy For: Evalulation/Treatment Occupational Therapy For: Evaluation/Treatment POST DISCHARGE ORDERS: Activity Instructions for Disc: Activity as tolerated Weight Bearing Status after Di: Full weight bearing, Touch down weight bearing DIET AFTER DISCHARGE: ADA Wound/Incision Care: Change dressing CHECKS AFTER DISCHARGE: Checks after discharge: Check blood press - daily, Check blood sugar, ac/hs, Check your Temp as needed CERTIFICATION STATEMENT: Certification Statement: Certification Statement: Based on the above finding, I certify that this patient is confined to the home and needs intermittent alf care, physical therapy and/or speech therapy, or continues to need occupational therapy.~ This patient is under my care, and I have initiated the establishment of the plan of care.~ This patient will be followed by myself or a community physician who will periodically review the plan of care. Home Meds Active Scripts Acetaminophen (TYLENOL) 325 Mg Tablet, 1-2 TAB PO QID, #60 TAB 0 Refills Prov:GUERLINE REZA DO 12/23/18 Sulfamethoxazole/Trimethoprim (BACTRIM DS TABLET) 1 Each Tablet, 1 TAB PO BID, # 14 TAB Prov:GUERLINE REZA DO 12/16/18 Hyoscyamine Sulfate (LEVSIN) 0.125 Mg Tablet, 0.125 MG PO QID, #30 TAB Prov:GUERLINE REZA DO 12/16/18 Lactulose (LACTULOSE) 20 Gm/30 Ml Solution, 20 GM PO BID, #1 BOT Prov:GUERLINE REZA DO 12/16/18 Ondansetron Hcl (ZOFRAN) 4 Mg Tablet, 1 TAB PO Q6HRS for nausea, #20 TAB Prov:JACQUI ADAMES MD 11/18/18 Linagliptin (TRADJENTA) 5 Mg Tablet, 5 MG PO DAILY for diabetes for 30 Days, # 30 TAB Prov:HAMMAD VARGAS MD 10/20/18 Lactulose (LACTULOSE) 20 Gm/30 Ml Solution, 20 GM PO BID PRN for CONSTIPATION, # 1 BOT Prov:TRINIDAD WYATT MD 10/05/18 Hydrocodone Bit/Acetaminophen (HYDROCODONE-APAP 5-325 ) 1 Each Tablet, 1 TAB PO PRN Q4HRS PRN for MODERATE PAIN for 30 Days, #180 TAB Prov:HAMMAD VARGAS MD 08/24/18 Reported Medications Insulin Lispro (HUMALOG) 100 Unit/1 Ml Insuln.pen, 0 SQ TIDWMEALHC for diabetes , SYR blood sugar less than 150 no insulin. 150-199 2 units 200-249 4 units 250-299 7 units 300-349 10 units 350 or more 12 units 08/23/18 Fluticasone/Salmeterol (ADVAIR 250-50 DISKUS) 1 Each Disk.w.dev, 1 SPRAY IN BID for asthma 08/20/18 Pramipexole Di-Hcl (MIRAPEX) 0.5 Mg Tablet, 0.5 TAB PO HS for RLS 08/20/18 Omeprazole (OMEPRAZOLE) 20 Mg Capsule.dr, 20 MG PO DAILY for gerd 08/20/18 Citalopram Hydrobromide (CITALOPRAM HBR) 10 Mg Tablet, 10 MG PO HS for depression 08/20/18 HAMMAD VARGAS MD Jan 02, 2019 09:11
--- NOTE | 2019-01-02 09:41 | PDOC ---
SUBJECTIVE ROS Stable OBJECTIVE Vital Signs Vital Signs Date Time Temp Pulse Resp B/P (MAP) Pulse Ox O2 Delivery O2 Flow Rate FiO2 01/02/19 07:15 98.2 73 19 153/63 (93) 94 Room Air 98.2 I & 0 Intake and Output 01/02/19 07:00 Intake Total 970 ml Balance 970 ml Intake Oral 970 ml # Voids 7 # Bowel Movements 1 PHYSICAL EXAM Physical Exam General Appearance: no apparent distress Skin: warm Respiratory: decreased breath sounds Heart: S1S2, RRR Abdomen: soft, bowel sounds present Genitourinary: No [facility]: alert, oriented, follow commands DIAGNOSIS/ASSESSMENT Assessment & Plan CKD stage 3 B/4 - Cr has been stable at 2.6 No labs ordered this am D M II- Primary managing HTN- stable Anemia- Hgb Low, Primary following DFU RLE- Suggest Hydration with Saline if Angio needed Increased risk of ALOK + Orthostasis and related Syncope- Cortisol Adequate On midodrine COMMENT/RELEVANT DATA Meds Current Medications Medications (Trade) Dose Ordered Sig/Steph Start Time Stop Time Status Last Admin Dose Admin Acetaminophen (Tylenol) 650 mg QID PRN 12/27/18 10:45 12/27/18 10:45 DC Acetaminophen/ Hydrocodone Bitart (Lortab 5/325) 1 tab PRN Q4HRS PRN 12/27/18 10:45 01/02/19 05:16 1 TAB Albuterol Sulfate (Ventolin Neb Soln) 2.5 mg PRN Q4HRS PRN 12/27/18 13:45 Aspirin (Ecotrin) 81 mg DAILYWBKFT 12/29/18 16:00 01/02/19 08:46 81 MG Atorvastatin Calcium (Lipitor) 20 mg QHS 12/29/18 21:00 01/01/19 19:58 20 MG Budesonide (Pulmicort) 0.5 mg RTBID 12/27/18 12:00 12/27/18 13:37 DC Ciprofloxacin (Cipro) 250 mg DAILYBFRLUN 12/30/18 11:30 01/01/19 12:35 250 MG Citalopram Hydrobromide (CeleXA) 10 mg HS 12/30/18 21:00 01/01/19 19:58 10 MG Cyanocobalamin (Vitamin B-12) 1,000 mcg DAILY10 12/30/18 12:00 01/04/19 08:00 01/01/19 12:35 1,000 MCG Dextrose (Dextrose 50%-Water Syringe) 12.5 gm PRN Q15MIN PRN 12/25/18 13:45 Insulin Human Lispro (HumaLOG) 0-5 UNITS TIDWMEALS 12/25/18 17:00 01/02/19 08:54 2 UNITS Lactobacillus Rhamnosus (Culturelle) 1 cap BID 12/31/18 21:00 01/02/19 08:46 1 CAP Linagliptin (Tradjenta) 5 mg DAILY 12/27/18 11:30 01/02/19 08:47 5 MG Lorazepam (Ativan) 1 mg PRN Q6HRS PRN 12/25/18 19:00 Midodrine (Proamatine) 5 mg BID94 01/02/19 09:00 Non-Formulary Medication (Fluticasone/ Salmeterol (Advair 250-50 Diskus)) 1 spray BID 12/27/18 21:00 UNV Nystatin (Mycostatin) 1 julián BID 12/28/18 09:00 01/01/19 19:59 1 JULIÁN Ondansetron HCl (Zofran Odt) 4 mg Q6HRS 12/27/18 12:00 01/02/19 05:17 4 MG Ondansetron HCl (Zofran) 4 mg PRN Q8HRS PRN 12/25/18 13:45 12/26/18 13:44 DC Pantoprazole Sodium (Protonix) 40 mg DAILYAC 12/27/18 11:30 01/02/19 08:46 40 MG Pramipexole Dihydrochloride (miraPEX) 0.5 mg QHS 12/27/18 21:00 01/01/19 19:57 0.5 MG Sodium Chloride 1,000 ml @ 1,000 mls/hr 1X ONCE 12/25/18 09:30 12/25/18 10:29 DC 12/25/18 10:08 1,000 MLS/HR Lab Laboratory Tests Test 01/01/19 12:02 01/01/19 16:57 01/01/19 21:30 01/02/19 07:40 Glucose (Fingerstick) 158 mg/dL (70-99) 183 mg/dL (70-99) 155 mg/dL (70-99) 159 mg/dL (70-99) Results All relevant outside records, renal labs, imaging studies, telemetry/EKG's were reviewed. CHAY ORTIZ MD Jan 02, 2019 09:41
[2019-01-02] MEDS: CYANOCOBALAMIN (VITAMIN B-12) 1,000 MCG/ML VIAL SQ SCH (10:02)
[2019-01-02] MEDS: MIDODRINE 2.5 MG TABLET PO SCH ×2 (10:02→17:02)
[2019-01-02] MEDS: NYSTATIN 100,000 UNIT/GM TOPICAL CREAM 15GM TUBE. TP SCH ×2 (10:02→21:00)
[2019-01-02 10:27] VITALS: BP 119/62
--- NOTE | 2019-01-02 11:56 | NUR ---
COLTON following pt. COLTON phoned and faxed Home health orders to [facility] Discussed with RN. Addendum: 01/02/19 at 1335 by MARYSE SEGURA Spoke with Jasbir from wound care. Vascular is being consulted. DC order cancelled. COLTON notified [facility].
[2019-01-02] MEDS: CIPROFLOXACIN HCL 250 MG TABLET. PO SCH (12:07)
--- NOTE | 2019-01-02 13:57 | NUR ---
Discharge cancelled today. Patient will be evaluated by vascular service. Patient is sitting comfortably on the chair, no complaints of pain.
--- NOTE | 2019-01-02 14:19 | PDOC ---
Provider Note Provider Note Vascular Surgery Consult dictated 73 year old female with right leg PVD with an ulcer on the left 1st toe partial amputation stump and right lateral foot over the 5th metatarsal head region. Plan right leg angiogram with possible tibial revascularization with CO2 and limited contrast on with Dr. Denise. Nephrology following and will medicate/hydrate prior to angio. No signs of significant infection requiring debridement/amputation at this point. Continue wound care and follow up with [facility] wound care center will be needed. SYLVIA PINEDA MD Jan 02, 2019 14:19
[2019-01-02 14:28] VITALS: BP 124/55
--- NOTE | 2019-01-02 16:20 | RAD ---
DOPPLER CAROTID BILAT Clinical Indication: DIZZINESS. Procedure: Pulsed wave and color-flow duplex imaging was utilized to evaluate the extracranial carotid arteries. Comparison: None. Findings: RIGHT SIDE: Moderate atherosclerotic plaque on cagle-scale images. Distal CCA peak systolic velocity 103 cm/sec. ICA peak systolic velocity 116 cm/sec. The right ICA/CCA ratio is 1.1. Delayed that Flow within the right vertebral artery and right ECA is directed antegrade. LEFT SIDE: Moderate atherosclerotic plaque on cagle-scale images. Distal CCA peak systolic velocity 81 cm/sec. ICA peak systolic velocity 89 cm/sec. The left ICA/CCA ratio is 1.1. Flow within the left vertebral artery and left ECA is directed antegrade. Carotid legend: CCA = common carotid artery ICA = internal carotid artery ECA = external carotid artery IMPRESSION: Moderate bilateral atherosclerotic disease with less than 50 percent stenosis. Electronically signed by: Og Alvares DO (01/02/2019 4:17 PM) [facility]
[2019-01-02] MEDS: IV NORMAL SALINE 1000ML BAG 1,000 ML IV SCH (17:30)
--- NOTE | 2019-01-02 18:16 | NUR ---
Nephro service updated of plan to do arteriogram on 01/04. Spoke with Dr. Mckeon at 1640, order received to start IVF NS for hydration prior to procedure.
[2019-01-02 19:20] VITALS: BP 115/54
--- NOTE | 2019-01-02 20:13 | CONS ---
DATE OF CONSULTATION: 01/02/2019 CHIEF COMPLAINT: Right leg peripheral arterial disease with nonhealing wounds on her foot. HISTORY OF PRESENT ILLNESS: The patient is a 73-year-old female who was admitted to the hospital because of dizziness and falling. She has a history of a right first toe partial amputation she reports back in August for osteomyelitis of her toe tip. She states that recently over the past several weeks, she has developed an open sore on the amputation site of her right first toe. She also states she has developed an ulcer on the lateral foot. She says this is secondary to the boot she was wearing rubbing on the side of her foot. These have not healed over the past several weeks. She reports no pain in her foot. She reports no tissue breakdown in her left foot. She is able to ambulate and does so without pain in her legs. She reports no fevers or chills. She has noticed no swelling in her legs. REVIEW OF SYSTEMS: A 10-point review of systems was performed, which was otherwise negative besides what is mentioned in the history of present illness. PAST MEDICAL HISTORY: Includes: 1. Peripheral arterial disease. 2. Diabetes mellitus. 3. Asthma. 4. Chronic renal insufficiency. 5. Gastroesophageal reflux disease. 6. Restless legs. 7. Arthritis. PAST SURGICAL HISTORY: Includes: 1. Right first toe partial amputation. 2. Right ankle repair, she reports with hardware. 3. Hysterectomy. 4. Tonsillectomy. SOCIAL HISTORY: The patient does not smoke or drink alcohol. ALLERGIES: INCLUDE TETANUS, PEACHES AND WOOL. MEDICATIONS: Please see her full MAR. PHYSICAL EXAMINATION: GENERAL: The patient is awake and alert, currently in no apparent distress. VITAL SIGNS: She is afebrile. Her vital signs are stable. NECK: Supple with no carotid bruits. HEART: Regular rate and rhythm without murmurs. LUNGS: Clear to auscultation bilaterally. ABDOMEN: Soft, nondistended, nontender. EXTREMITIES: Her bilateral lower extremities are warm without edema, her right foot has a partial amputation of the right first toe, there is an open ulcer on the plantar surface of this amputation stump deep to the subcutaneous tissue level, there is no surrounding erythema, no drainage and no significant necrotic tissue. She also has an open wound on the lateral aspect of her foot overlying the area of the fifth metatarsal head region, this is deep to the subcutaneous tissue level, the bone is not exposed, but this is close to the bone, there is no necrotic tissue, no erythema or drainage. Her right foot has no palpable pulses in the foot. She has intact motor and sensory function with no signs of ischemia, she has a palpable right femoral pulse. Her left lower extremity is warm without tissue breakdown in her foot, there are no palpable pedal pulses in the left foot; however, she has normal motor and sensory function, she has a palpable left femoral pulse. NEUROLOGIC: She is awake and alert, oriented x 3, moving all 4 extremities with normal strength, no gross neurologic deficits. LABORATORY STUDIES: Her hemoglobin is on last check 8.3, platelet count 180. Creatinine yesterday was 2.5. IMPRESSION: 1. Right lower extremity peripheral arterial disease with nonhealing ulcers on her right first toe amputation stump and right lateral foot. 2. Chronic renal insufficiency. 3. Diabetes mellitus. 4. Dizziness. PLAN: 1. The patient has peripheral arterial disease based on duplex scan of her right leg, which showed diffuse atherosclerotic disease and likely tibial artery occlusion. She has nonhealing ulcers on her right first toe amputation stump and right lateral foot. I recommended angiogram of her right leg with minimal contrast and CO2. This will be scheduled on with Dr. Denise. Nephrology is following and they will be asked to a prehydrate and medicate her prior to the procedure per their expertise. She is on daily aspirin. 2. Her right first toe amputation stump ulcer and right lateral foot ulcer are clean with no signs of significant infection. I do not feel she needs surgical debridement for the amputation at this point; however, if these wounds do not heal, she will likely need an intervention in the near future. 3. Continue wound care here in the hospital and she will need follow up with the [facility] weekly. 4. We will check a carotid artery duplex scan with her history of dizziness and falls. SYLVIA PINEDA MD DR: DESTINY/humble JOB#: [id number] / [id number]
[2019-01-02] MEDS: PRAMIPEXOLE 0.25 MG TABLET. PO SCH (21:15)
[2019-01-02] MEDS: CITALOPRAM 10 MG TABLET. PO SCH (21:16)
[2019-01-02] MEDS: ATORVASTATIN CALCIUM 20 MG TABLET PO SCH (21:16)
[2019-01-02 23:48] VITALS: BP 159/60
[2019-01-03] MEDS: HYDROcodone/APAP 5/325MG 1 TAB TABLET PO PRN ×2 (01:05→05:09)
[2019-01-03] MEDS: ONDANSETRON ODT 4 MG TAB.RAPDIS. PO SCH ×4 (01:06→18:00)
[2019-01-03 03:02] VITALS: BP 142/82
[2019-01-03 05:17] LABS: HEMATOCRIT 26.5 % (36.0-47.0); HEMOGLOBIN 8.3 g/dL (12.0-15.5); RED BLOOD COUNT 3.15 x10^6/uL (3.50-5.40); RED CELL DISTRIBUTION WIDTH 16.5 % (11.5-14.5); WHITE BLOOD COUNT 7.1 x10^3/uL (4.0-11.0)
[2019-01-03 05:43] LABS: CALCIUM 8.8 mg/dL (8.5-10.1); CREATININE 2.9 mg/dL (0.6-1.0); GFR 15.9; POTASSIUM 4.2 mmol/L (3.5-5.1)
[2019-01-03 06:20] LABS: PROTHROMBIN TIME PATIENT 12.5 SEC (11.7-14.0)
[2019-01-03 06:55] VITALS: BP 160/67
[2019-01-03] MEDS: PANTOPRAZOLE 40 MG TABLET.DR. PO SCH (08:43)
[2019-01-03] MEDS: ASPIRIN ENTERIC COATED 81 MG TABLET.DR. PO SCH (08:43)
[2019-01-03] MEDS: LACTOBACILLUS RHAMNOSUS GG 1 CAPSULE. PO SCH ×2 (08:43→21:10)
[2019-01-03] MEDS: MIDODRINE 2.5 MG TABLET PO SCH ×2 (08:44→17:50)
[2019-01-03] MEDS: NYSTATIN 100,000 UNIT/GM TOPICAL CREAM 15GM TUBE. TP SCH ×2 (08:45→21:10)
[2019-01-03] MEDS: LINAGLIPTIN 5 MG TABLET PO SCH (08:45)
[2019-01-03] MEDS: CYANOCOBALAMIN (VITAMIN B-12) 1,000 MCG/ML VIAL SQ SCH (08:45)
[2019-01-03] MEDS: INSULIN LISPRO 300 UNITS/3 ML INSULN.PEN. SQ SCH ×3 (09:12→17:53)
--- NOTE | 2019-01-03 10:28 | NUR ---
SW following pt. Spoke with RN who reported pt was scheduled for angiogram today but kidney function is high and procedure will be rescheduled. Will continue to follow.
--- NOTE | 2019-01-03 10:42 | PDOC ---
PROGRESS NOTES Subjective Subjective Patient seen and examined in room. Patient without complaints of pain. Dr. Denise present for examination. Objective Objective Vital Signs Date Time Temp Pulse Resp B/P (MAP) Pulse Ox O2 Delivery O2 Flow Rate FiO2 01/03/19 08:44 81 160/67 01/03/19 06:55 98.1 17 98 Room Air 98.1 Intake and Output 01/03/19 07:00 Intake Total 1430 ml Balance 1430 ml Intake Oral 1430 ml # Voids 8 Physical Exam Physical Exam Awake and alert Heart rate regular Right foot inspected patient has right fifth lateral toe ulcer and first toe ulcer both appear stable with no surrounding swelling or erythema. Assessment Assessment Problems Medical Problems: (1) Acute on chronic renal failure Status: Acute (2) Altered mental status Status: Acute Plan Plan of Care Assessment/Plan: Right leg PVD with an ulcer on the left 1st toe partial amputation stump and right lateral foot over the 5th metatarsal head region. Recommend right leg angiogram with possible tibial revascularization with CO2 and limited contrast this was tentatively scheduled for with Dr. Denise. Patient's Cr 2.9 trending up, Dr. Denise recommends waiting until this has improved in order to preserve kidney function, possibly early next week. Nephrology is following and will medicate/hydrate prior to angio. No signs of significant infection requiring debridement/amputation at this point. Continue local wound care. Comment Review of Relevant I have reviewed the following items lola (where applicable) has been applied. Medications Vitals/I & O LUIS CHAUDHRY APRN Jan 03, 2019 10:42
[2019-01-03 11:12] VITALS: BP 104/46
[2019-01-03] MEDS: CIPROFLOXACIN HCL 250 MG TABLET. PO SCH (11:13)
[2019-01-03] MEDS: MULTIVITAMIN with MINERAL TABLET. PO SCH (11:13)
[2019-01-03] MEDS: IV NORMAL SALINE 1000ML BAG 1,000 ML IV SCH (11:13)
[2019-01-03 11:25] LABS: METHYLMALONIC ACID 333 nmol/L (0-378)
--- NOTE | 2019-01-03 11:26 | PN ---
DATE: 01/03/2019 LOCATION: Room 654. SUBJECTIVE: The patient is awake, alert. Definitely feels like she is having less orthostasis when she stands up and orthostatic vitals that were charted yesterday would assume this is somewhat improved. OBJECTIVE: VITAL SIGNS: Stable. She is afebrile. CHEST: Clear. HEART: Regular. ABDOMEN: Benign. EXTREMITIES: Right foot remains dressed. Vascular Surgery saw her yesterday and are planning on an arteriogram during the stay and discharge will be held at this point, with plans to follow there as far as whether any revascularization, etc., is needed. LABORATORY DATA: Hemoglobin stable at 8.3. Creatinine this morning is higher at 2.9. Sugars have been 150-200 over the last 24 hours. IMPRESSION: 1. Orthostatic hypotension with multiple episodes of syncope prior to admission, which is actually improved at this point in time with the addition of midodrine. 2. Diabetes. 3. Right great toe ulcer infection with peripheral arterial disease. 4. Chronic kidney disease with acute renal failure on top of it. PLAN: Continue present care. Await arteriogram with plans to followup. Continue present wound care, etc. HAMMAD VARGAS MD DR: CARITO/humble JOB#: [id number] / [id number]
--- NOTE | 2019-01-03 11:34 | PDOC ---
SUBJECTIVE ROS Stable OBJECTIVE Vital Signs Vital Signs Date Time Temp Pulse Resp B/P (MAP) Pulse Ox O2 Delivery O2 Flow Rate FiO2 01/03/19 11:12 98.0 63 18 104/46 (65) 99 Room Air 98.0 I & 0 Intake and Output 01/03/19 06:59 Intake Total 1430 ml Balance 1430 ml Intake Oral 1430 ml # Voids 8 PHYSICAL EXAM Physical Exam General Appearance: no apparent distress Skin: warm Respiratory: decreased breath sounds Heart: S1S2, RRR Abdomen: soft, bowel sounds present Genitourinary: No [facility]: alert, oriented, follow commands DIAGNOSIS/ASSESSMENT Assessment & Plan CKD stage 3 B/4 - Cr has been stable at 2.6 Creat increased to 2.9 D M II- Primary managing HTN- stable Anemia- Hgb Low, Primary following DFU RLE- Suggest Hydration with Saline if Angio planned Discussed with RN , started don IVF last night Increased risk of ALOK + Vascular recommends Right leg angiogram with possible tibial revascularization with CO2 and limited contrast-? On Orthostasis and related Syncope- Cortisol Adequate On midodrine COMMENT/RELEVANT DATA Meds Current Medications Medications (Trade) Dose Ordered Sig/Steph Start Time Stop Time Status Last Admin Dose Admin Acetaminophen (Tylenol) 650 mg QID PRN 12/27/18 10:45 12/27/18 10:45 DC Acetaminophen/ Hydrocodone Bitart (Lortab 5/325) 1 tab PRN Q4HRS PRN 12/27/18 10:45 01/03/19 05:09 1 TAB Albuterol Sulfate (Ventolin Neb Soln) 2.5 mg PRN Q4HRS PRN 12/27/18 13:45 Aspirin (Ecotrin) 81 mg DAILYWBKFT 12/29/18 16:00 01/03/19 08:43 81 MG Atorvastatin Calcium (Lipitor) 20 mg QHS 12/29/18 21:00 01/02/19 21:16 20 MG Budesonide (Pulmicort) 0.5 mg RTBID 12/27/18 12:00 12/27/18 13:37 DC Ciprofloxacin (Cipro) 250 mg DAILYBFRLUN 12/30/18 11:30 01/03/19 11:13 250 MG Citalopram Hydrobromide (CeleXA) 10 mg HS 12/30/18 21:00 01/02/19 21:16 10 MG Cyanocobalamin (Vitamin B-12) 1,000 mcg DAILY10 12/30/18 12:00 01/04/19 08:00 01/03/19 08:45 1,000 MCG Dextrose (Dextrose 50%-Water Syringe) 12.5 gm PRN Q15MIN PRN 12/25/18 13:45 Insulin Human Lispro (HumaLOG) 0-5 UNITS TIDWMEALS 12/25/18 17:00 01/03/19 11:28 2 UNITS Lactobacillus Rhamnosus (Culturelle) 1 cap BID 12/31/18 21:00 01/03/19 08:43 1 CAP Linagliptin (Tradjenta) 5 mg DAILY 12/27/18 11:30 01/03/19 08:45 5 MG Lorazepam (Ativan) 1 mg PRN Q6HRS PRN 12/25/18 19:00 Midodrine (Proamatine) 5 mg BID94 01/02/19 09:00 01/03/19 08:44 5 MG Multivitamins (Thera M Plus) 1 tab DAILY 01/03/19 10:30 01/03/19 11:13 1 TAB Non-Formulary Medication (Fluticasone/ Salmeterol (Advair 250-50 Diskus)) 1 spray BID 12/27/18 21:00 UNV Nystatin (Mycostatin) 1 julián BID 12/28/18 09:00 01/03/19 08:45 1 JULIÁN Ondansetron HCl (Zofran Odt) 4 mg Q6HRS 12/27/18 12:00 01/03/19 05:09 4 MG Ondansetron HCl (Zofran) 4 mg PRN Q8HRS PRN 12/25/18 13:45 12/26/18 13:44 DC Pantoprazole Sodium (Protonix) 40 mg DAILYAC 12/27/18 11:30 01/03/19 08:43 40 MG Pramipexole Dihydrochloride (miraPEX) 0.5 mg QHS 12/27/18 21:00 01/02/19 21:15 0.5 MG Sodium Chloride 1,000 ml @ 70 mls/hr [id number] 01/02/19 18:00 01/03/19 11:13 70 MLS/HR Lab Laboratory Tests Test 01/02/19 16:19 01/02/19 19:35 01/03/19 04:30 01/03/19 06:57 Glucose (Fingerstick) 163 mg/dL (70-99) 152 mg/dL (70-99) 200 mg/dL (70-99) White Blood Count 7.1 x10^3/uL (4.0-11.0) Red Blood Count 3.15 x10^6/uL (3.50-5.40) Hemoglobin 8.3 g/dL (12.0-15.5) Hematocrit 26.5 % (36.0-47.0) Mean Corpuscular Volume 84 fL (79-100) Mean Corpuscular Hemoglobin 26 pg (25-35) Mean Corpuscular Hemoglobin Concent 31 g/dL (31-37) Red Cell Distribution Width 16.5 % (11.5-14.5) Platelet Count 172 x10^3/uL (140-400) Prothrombin Time 12.5 SEC (11.7-14.0) Prothromb Time International Ratio 1.0 (0.8-1.1) Sodium Level 142 mmol/L (136-145) Potassium Level 4.2 mmol/L (3.5-5.1) Chloride Level 104 mmol/L (98-107) Carbon Dioxide Level 30 mmol/L (21-32) Anion Gap 8 (6-14) Blood Urea Nitrogen 37 mg/dL (7-20) Creatinine 2.9 mg/dL (0.6-1.0) Estimated GFR (Cockcroft-Gault) 15.9 Glucose Level 201 mg/dL (70-99) Calcium Level 8.8 mg/dL (8.5-10.1) Results All relevant outside records, renal labs, imaging studies, telemetry/EKG's were reviewed. CHAY ORTIZ MD Jan 03, 2019 11:34
[2019-01-03 14:52] VITALS: BP 169/67
--- NOTE | 2019-01-03 15:47 | NUR ---
Wound care: Patient seen per wound care follow up again today. Dressings removed and Wounds cleansed, assessed, pictured, and measured. Right lateral foot wound redressed with Iodoflex, gauze pads, and kerlix. To the right great toe amputation site wound reddressed with Hydrogel (lubricating jelly), Xeroform gauze, gauze pads and kerlix. Dressing change instructions left in room as well as Iodoflex. No other wounds noted. Calazime applied to coccyx and patient educated on repositioning. Patient in chair at this time, bilateral heels floated using pillows. Call light in reach. Wound care will follow patient.
[2019-01-03 19:15] VITALS: BP 140/60
[2019-01-03] MEDS: ATORVASTATIN CALCIUM 20 MG TABLET PO SCH (21:10)
[2019-01-03] MEDS: CITALOPRAM 10 MG TABLET. PO SCH (21:10)
[2019-01-03] MEDS: PRAMIPEXOLE 0.25 MG TABLET. PO SCH (21:10)
[2019-01-03 23:30] VITALS: BP 148/67
[2019-01-04] MEDS: IV NORMAL SALINE 1000ML BAG 1,000 ML IV SCH (01:51)
[2019-01-04 03:30] VITALS: BP 94/42
[2019-01-04] MEDS: ONDANSETRON ODT 4 MG TAB.RAPDIS. PO SCH ×3 (06:00→12:27)
[2019-01-04 07:00] VITALS: BP 158/71
[2019-01-04 07:03] LABS: CALCIUM 8.9 mg/dL (8.5-10.1); CREATININE 2.4 mg/dL (0.6-1.0); GFR 19.8; POTASSIUM 4.5 mmol/L (3.5-5.1)
[2019-01-04] MEDS: INSULIN LISPRO 300 UNITS/3 ML INSULN.PEN. SQ SCH ×2 (08:00→12:34)
[2019-01-04] MEDS: NYSTATIN 100,000 UNIT/GM TOPICAL CREAM 15GM TUBE. TP SCH (08:58)
[2019-01-04] MEDS: PANTOPRAZOLE 40 MG TABLET.DR. PO SCH (08:59)
[2019-01-04] MEDS: MULTIVITAMIN with MINERAL TABLET. PO SCH (08:59)
[2019-01-04] MEDS: ASPIRIN ENTERIC COATED 81 MG TABLET.DR. PO SCH (08:59)
[2019-01-04] MEDS: LINAGLIPTIN 5 MG TABLET PO SCH (08:59)
[2019-01-04] MEDS: LACTOBACILLUS RHAMNOSUS GG 1 CAPSULE. PO SCH (08:59)
[2019-01-04] MEDS: MIDODRINE 2.5 MG TABLET PO SCH ×2 (08:59→16:00)
[2019-01-04 10:24] VITALS: BP_SYST 109; BP_SYST 72; BP_SYST 87; BP_DIAS 30; BP_DIAS 46; BP_DIAS 61
[2019-01-04] MEDS: CIPROFLOXACIN HCL 250 MG TABLET. PO SCH (12:30)
[2019-01-04 15:00] VITALS: BP 155/70
--- NOTE | 2019-01-04 15:04 | NUR ---
SW following pt. Spoke with Ollie at [facility] and confirmed previous orders are good. Pt will dc with home health services today. MADELIN ALEXANDER.
[2019-01-04 16:00] VITALS: BP 155/70
--- NOTE | 2019-01-04 16:17 | NUR ---
Patient discharged to home with home health. Discharge instructions, medications, and follow up appointments discussed with patient. Patient verbalized understanding. Prescription called to [facility]. Discharge packet given to patient. IV discontinued. Patient assisted out in wheelchair with staff at this time. Family here to get patient.
--- NOTE | 2019-01-04 18:05 | PN ---
DATE: 01/04/2019 ROOM: 654. SUBJECTIVE: The patient is awake, alert, definitely is feeling much better from an orthostatic standpoint. OBJECTIVE: VITAL SIGNS: Stable. She is afebrile. CHEST: Clear. HEART: Regular. ABDOMEN: Benign. LABORATORY DATA: Sugars are decent. Creatinine is 2.4 this morning. She is having an arteriogram later today. IMPRESSION: 1. Orthostasis improved. 2. Diabetes. 3. Peripheral arterial disease, arteriogram today. 4. Chronic kidney disease. PLAN: Await arteriogram and vascular surgeries plans after arteriogram. Otherwise, same. HAMMAD VARGAS MD DR: CARITO/humble JOB#: [id number] / [id number]
--- NOTE | 2019-01-04 22:37 | DS ---
DATE OF DISCHARGE: 01/04/2019 PRIMARY DIAGNOSES: Multiple falls and one episode of syncope due to orthostatic hypotension. ADDITIONAL DIAGNOSES: Diabetes, peripheral arterial disease, status post partial amputation of the right great toe, right lateral foot ulcer, asthma, pseudomonas urinary tract infection. CHIEF COMPLAINT AND HISTORY OF PRESENT ILLNESS: This 73-year-old white female admitted through the Emergency Room on the day of admission after multiple trips there over the last week or so prior to admission due to falls and at least one episode that sounded to be syncopal episode. Upon questioning, it was felt that her symptoms were due to orthostasis. She had imaging done in the Emergency Room including head and cervical spine CT and chest x-ray that showed no evidence of any significant injuries at the time of admission. The patient was found to have orthostasis with vital signs during the stay, was initially encouraged hydration and support hose were added without remedy. She was started on midodrine and titrated up to 5 mg b.i.d., but she still had some orthostasis on vitals at the time of discharge; however, symptomatology was gone and she felt she could get up without getting the symptoms of lightheadedness and dizziness that she had prior to admission. She was found to have a right lateral foot ulcer, which she states has been present back from when she ruptured her partial big toe amputation. The Wound Care saw it and debrided it. Cultures grew out corynebacterium. Their recommendations were that of diabetic shoe and arteriogram, as well as arterial Doppler done during the stay showed posterior tibial and probable peroneal artery occlusion on the right with no high-grade focal femoral popliteal stenosis noted. She was scheduled for an arteriogram after Vascular Surgery evaluated her; however, it was held because of her creatinine up in the upper 2's. She is known to have chronic kidney disease, running creatinine in low to mid 2 range. Her last creatinine on discharge with hydration was 2.4. It was felt that she should come back the following week for an arteriogram and probably be admitted the night prior with Renal to do hydration prior to an arteriogram to ensure if there was a problem that was fixable we can then improve circulation to the foot for a better chance of healing. She was noted to have a pseudomonal urinary tract infection during the stay and treated with Cipro during this stay, for this she was asymptomatic with the urine. She was felt ready for dismissal on 01/04/2019 and this was accomplished. DISPOSITION: The patient is discharged to home, ADA diet, activity as tolerated, office this coming Tuesday. DISCHARGE MEDICATIONS: Listed on the med rec and have been addressed. She was discharged home with [facility]. HAMMAD VARGAS MD DR: CARITO/humble JOB#: [id number] / [id number]
== END 2019-01-04 16:00 | disposition home health service (06) | DRG 564 ==
LOC: ER 09:13 → 6 SOUTH 12:22
PROVIDERS: ADMIT Family Medicine; ATTEND Family Medicine
PROC: 0JDQ3ZZ Extraction of Right Foot Subcutaneous Tissue and Fascia, Percutaneous Approach (ICD-10-PCS; principal; 2018-12-27)
DX: T87.43 Infection of amputation stump, right lower extremity (principal); G93.41 Metabolic encephalopathy; N17.9 Acute kidney failure, unspecified; N18.4 Chronic kidney disease, stage 4 (severe); N39.0 Urinary tract infection, site not specified; I95.1 Orthostatic hypotension; L97.519 Non-pressure chronic ulcer of other part of right foot with unspecified severity; I12.9 Hypertensive chronic kidney disease with stage 1 through stage 4 chronic kidney disease, or unspecified chronic kidney disease; W18.30XA Fall on same level, unspecified, initial encounter; D63.1 Anemia in chronic kidney disease; G25.81 Restless legs syndrome; G89.29 Other chronic pain; L97.529 Non-pressure chronic ulcer of other part of left foot with unspecified severity; Z90.710 Acquired absence of both cervix and uterus; Z89.411 Acquired absence of right great toe; J45.909 Unspecified asthma, uncomplicated; B96.5 Pseudomonas (aeruginosa) (mallei) (pseudomallei) as the cause of diseases classified elsewhere; K21.9 Gastro-esophageal reflux disease without esophagitis; M19.90 Unspecified osteoarthritis, unspecified site; E11.43 Type 2 diabetes mellitus with diabetic autonomic (poly)neuropathy; E11.22 Type 2 diabetes mellitus with diabetic chronic kidney disease; E11.621 Type 2 diabetes mellitus with foot ulcer; E11.51 Type 2 diabetes mellitus with diabetic peripheral angiopathy without gangrene; E11.69 Type 2 diabetes mellitus with other specified complication
CPT/HCPCS: 36415; 70450; 71045; 72125; 73630; 80048; 80053; 80061; 80307; 81001; 82533; 82553; 82962; 83690; 83735; 83880; 83921; 84443; 84484; 85025; 85027; 85610; 87071; 87075; 87086; 87186; 93005; 93880; 93926; 94760; 96361; 96374; J1815; J2060; J3420; J7030; Q0162; 97116; 97530; 97535; 99285-25

== ENCOUNTER 2019-01-29 10:09 | Emergency (ER) | payer OTHER ==
[~2019-01-29] VITALS: Ht 160 cm; Wt 61.2 kg
[2019-01-29] MEDS ORDERED: IV NORMAL SALINE 1000ML BAG 1,000 ML IV ONE (10:45)
[2019-01-29] MEDS ORDERED: FAMOTIDINE 20 MG/2 ML VIAL IVP ONE (10:45)
[2019-01-29] MEDS ORDERED: ONDANSETRON PF 4 MG/2 ML VIAL. IV ONE (10:45)
--- NOTE | 2019-01-29 10:50 | PHYS DOC ---
Past Medical History Past Medical History: Asthma, Diabetes-Type I, GERD Additional Past Medical Histor: RLS,CHRONIC PAIN Past Surgical History: Hysterectomy, Tonsillectomy Additional Past Surgical Histo: RIGHT ANKLE WITH RODS AND PINS, LRG BIG TOE SX Alcohol Use: None Drug Use: None Adult General Chief Complaint Chief Complaint: NAUSEA/VOMITING/DIARRHA HPI HPI Patient is a 73 year old female with history of diabetes type 1, acid reflex, who presents to the ED today complaining of nausea, vomiting, generalized abdominal pain described as mild and cramping that began 3 days ago. Patient denies any diarrhea. Denies any fever. Denies any hematemesis. Denies any chest pain or shortness of breath Review of Systems Review of Systems Constitutional: Denies fever or chills [] Eyes: Denies change in visual acuity, redness, or eye pain [] HENT: Denies nasal congestion or sore throat [] Respiratory: Denies cough or shortness of breath [] Cardiovascular: No additional information not addressed in HPI [] GI: Reports generalized lower abdominal pain with nausea and vomiting, denies bloody stools or diarrhea [] : Denies dysuria or hematuria [] Musculoskeletal: Denies back pain or joint pain [] Integument: Denies rash or skin lesions [] Neurologic: Denies headache, focal weakness or sensory changes [] All other systems were reviewed and found to be within normal limits, except as documented in this note. Current Medications Current Medications Current Medications Medications (Trade) Dose Ordered Sig/Steph Start Time Stop Time Status Last Admin Dose Admin Ceftriaxone Sodium (Rocephin) 1 gm 1X ONCE 01/29/19 12:30 01/29/19 12:31 DC 01/29/19 12:43 1 GM Famotidine (Pepcid Vial) 20 mg 1X ONCE 01/29/19 10:45 01/29/19 10:46 DC 01/29/19 11:22 20 MG Ondansetron HCl (Zofran) 4 mg 1X ONCE 01/29/19 10:45 01/29/19 10:46 DC 01/29/19 11:21 4 MG Sodium Chloride 1,000 ml @ 1,000 mls/hr 1X ONCE 01/29/19 10:45 01/29/19 11:44 DC 01/29/19 10:45 1,000 MLS/HR Allergies Allergies Allergies Coded Allergies Type Severity Reaction Last Updated Verified Tetanus Vaccines and Toxoid Allergy Severe SWELLING 08/19/18 Yes wool Allergy Severe RASH 08/19/18 Yes peach Allergy Intermediate Rash 08/22/18 Yes Physical Exam Physical Exam Constitutional: Well developed, well nourished, no acute distress, non-toxic appearance. [] HENT: Normocephalic, atraumatic, bilateral external ears normal, oropharynx moist, no oral exudates, nose normal. [] Eyes: PERRLA, EOMI, conjunctiva normal, no discharge. [] Neck: Normal range of motion, no tenderness, supple, no stridor. [] Cardiovascular:Heart rate regular rhythm, no murmur [] Lungs & Thorax: Bilateral breath sounds clear to auscultation [] Abdomen: Bowel sounds normal, soft, no tenderness, no masses, no pulsatile masses. [] Skin: Warm, dry, no erythema, no rash. [] Back: No tenderness, no CVA tenderness. [] Extremities: No tenderness, no cyanosis, no clubbing, ROM intact, no edema. [] Neurologic: Alert and oriented X 3, normal motor function, normal sensory function, no focal deficits noted. [] Psychologic: Affect normal, judgement normal, mood normal. [] Current Patient Data Vital Signs Vital Signs Date Time Temp Pulse Resp B/P (MAP) Pulse Ox O2 Delivery O2 Flow Rate FiO2 01/29/19 10:26 98.6 96 20 189/89 (122) 98 Room Air 98.6 Lab Values Laboratory Tests Test 01/29/19 10:55 01/29/19 11:28 White Blood Count 8.6 x10^3/uL (4.0-11.0) Red Blood Count 3.54 x10^6/uL (3.50-5.40) Hemoglobin 9.5 g/dL (12.0-15.5) L Hematocrit 30.1 % (36.0-47.0) L Mean Corpuscular Volume 85 fL (79-100) Mean Corpuscular Hemoglobin 27 pg (25-35) Mean Corpuscular Hemoglobin Concent 32 g/dL (31-37) Red Cell Distribution Width 16.9 % (11.5-14.5) H Platelet Count 225 x10^3/uL (140-400) Neutrophils (%) (Auto) 72 % (31-73) Lymphocytes (%) (Auto) 21 % (24-48) L Monocytes (%) (Auto) 5 % (0-9) Eosinophils (%) (Auto) 1 % (0-3) Basophils (%) (Auto) 1 % (0-3) Neutrophils # (Auto) 6.2 x10^3uL (1.8-7.7) Lymphocytes # (Auto) 1.8 x10^3/uL (1.0-4.8) Monocytes # (Auto) 0.4 x10^3/uL (0.0-1.1) Eosinophils # (Auto) 0.1 x10^3/uL (0.0-0.7) Basophils # (Auto) 0.1 x10^3/uL (0.0-0.2) Sodium Level 140 mmol/L (136-145) Potassium Level 4.5 mmol/L (3.5-5.1) Chloride Level 100 mmol/L (98-107) Carbon Dioxide Level 30 mmol/L (21-32) Anion Gap 10 (6-14) Blood Urea Nitrogen 40 mg/dL (7-20) H Creatinine 2.3 mg/dL (0.6-1.0) H Estimated GFR (Cockcroft-Gault) 20.8 BUN/Creatinine Ratio 17 (6-20) Glucose Level 182 mg/dL (70-99) H Calcium Level 10.0 mg/dL (8.5-10.1) Total Bilirubin 0.2 mg/dL (0.2-1.0) Aspartate Amino Transferase (AST) 20 U/L (15-37) Alanine Aminotransferase (ALT) 17 U/L (14-59) Alkaline Phosphatase 103 U/L (46-116) Total Protein 9.3 g/dL (6.4-8.2) H Albumin 3.7 g/dL (3.4-5.0) Albumin/Globulin Ratio 0.7 (1.0-1.7) L Lipase 198 U/L (73-393) Ethyl Alcohol Level < 10 mg/dL (0-10) Urine Collection Type Unknown Urine Color Yellow Urine Clarity Turbid Urine pH 7.5 Urine Specific [place] 1.015 Urine Protein 100 mg/dL (NEG-TRACE) Urine Glucose (UA) 100 mg/dL (NEG) Urine Ketones (Stick) Negative mg/dL (NEG) Urine Blood Moderate (NEG) Urine Nitrite Positive (NEG) Urine Bilirubin Negative (NEG) Urine Urobilinogen Dipstick 0.2 mg/dL (0.2 mg/dL) Urine Leukocyte Esterase Large (NEG) Urine RBC Fobs /HPF (0-2) Urine WBC Tntc /HPF (0-4) Urine Bacteria Many /HPF (0-FEW) Urine Opiates Screen Neg (NEG) Urine Methadone Screen Neg (NEG) Urine Barbiturates Neg (NEG) Urine Phencyclidine Screen Neg (NEG) Urine Amphetamine/Methamphetamine Neg (NEG) Urine Benzodiazepines Screen Neg (NEG) Urine Cocaine Screen Neg (NEG) Urine Cannabinoids Screen Neg (NEG) Urine Ethyl Alcohol Neg (NEG) Laboratory Tests 01/29/19 10:55 Laboratory Tests 01/29/19 10:55 EKG EKG [] Radiology/Procedures Radiology/Procedures []PROCEDURE: CT ABDOMEN PELVIS WO CONTRAST CT Abdomen and Pelvis without contrast History: Abdominal pain, nausea and vomiting Technique: Noncontrast CT imaging was performed of the abdomen and pelvis. Multiplanar images are reviewed. Exposure: One or more of the following individualized dose reduction techniques were utilized for this examination: 1. Automated exposure control 2. Adjustment of the mA and/or kV according to patient size 3. Use of iterative reconstruction technique. Comparison: December 16, 2018; August 19, 2018 Findings: Not fully evaluated, there is again moderate size hiatal hernia containing superior aspect of the stomach. There is coronary calcification. Accurate evaluation of abdominal visceral organs is limited without intravenous contrast. There is no new obvious focal abnormality of the liver, spleen, pancreas, gallbladder. There is no hydronephrosis of either kidney. Calcifications in the right renal hilar region are likely vascular in etiology. There is prominent atherosclerotic calcification of the abdominal aorta, also involvement of the iliac arteries. Evaluation of bowel somewhat limited without oral contrast. Bowel is not significantly dilated. Normal appendix is visualized. There is retained stool in segments of the colon. There is no free air or free fluid. There is distention of the urinary bladder. There is persistent somewhat bilobed appearing focus of cystic density in the left adnexal region about 4.7 cm x 3 cm in axial oblique dimensions by about 3.1 cm cc, previous August 2018 exam about 4.3 cm x 2.9 cm x 3.4 cm. There is again grade 1 anterior spondylolisthesis L4-5, multilevel facet degenerative change. There is again superior T12 compression fracture with osseous retropulsion superiorly. Impression: 1. There is no CT evidence of acute appendicitis. There is some variable retained stool in the colon. 2. There is distention of urinary bladder. 3. There is bilobed or septated cystic lesion of the left adnexa as seen previously, considerations of complex cyst or cystic mass. 4. There is again moderate size hiatal hernia. Electronically signed by: Hammad Marino MD (01/29/2019 12:22 PM) [id number] DICTATED and SIGNED BY: HAMMAD MARINO MD DATE: 01/29/19 1222 Course & Med Decision Making Course & Med Decision Making Pertinent Labs and Imaging studies reviewed. (See chart for details) This is a 73-year-old female patient presenting to the ED today with nausea, vomiting, abdominal cramping, symptoms began 3 days ago. CBC with a normal WBC, hemoglobin 9.5, hematocrit 30.1, this is around patient's baseline, CMP with creatinine of 2.3, BUN 40, patient has history of renal insufficiency, this is around her baseline. Urine analysis is noted for UTI with nitrites. She was started on Rocephin. CT of the abdomen and pelvic was negative for appendicitis, noted for bladder distention, patient was able to void in the ED. She also has a left adnexal complex cyst which is not new. Also noted for constipation and hiatal hernia. Patient is alert and oriented 3, offered admission, she declined, will be discharged on cephalexin. Follow-up with her own PCP in the next 3-7 days. Dragon Disclaimer Dragon Disclaimer This electronic medical record was generated, in whole or in part, using a voice recognition dictation system. Departure Departure Impression: Primary Impression: UTI (urinary tract infection) Additional Impression: Nausea and vomiting Disposition: 01 HOME, SELF-CARE Condition: STABLE Referrals: HAMMAD VARGAS MD (PCP) Follow-up in the next 3-7 days Patient Instructions: Urinary Tract Infection Additional Instructions: You were evaluated in the emergency room and noted to have urinary tract infection, we put you on antibiotics, ensure you complete them. Follow-up with your primary care doctor in the next 3-7 days. Scripts Cephalexin (CEPHALEXIN) 500 Mg Tablet 1 TAB PO BID, #14 TAB Prov: SANDRA HEARD APRN 01/29/19 Ondansetron (ONDANSETRON ODT) 4 Mg Tab.rapdis 1 TAB PO PRN Q6-8HRS, #16 TAB Prov: SANDRA HEARD CLINICAL DATA ASSOCIATE 01/29/19 Problem Qualifiers Primary Impression: UTI (urinary tract infection) Urinary tract infection type: site unspecified Hematuria presence: without hematuria Qualified Codes: N39.0 - Urinary tract infection, site not specified Additional Impression: Nausea and vomiting Vomiting type: unspecified Vomiting Intractability: unspecified Qualified Codes: R11.2 - Nausea with vomiting, unspecified SANDRA HEARD APRN Jan 29, 2019 10:50
[2019-01-29 11:02] LABS: BASO # 0.1 x10^3/uL (0.0-0.2); BASO % 1 % (0-3); EOS # 0.1 x10^3/uL (0.0-0.7); EOS % 1 % (0-3); HEMATOCRIT 30.1 % (36.0-47.0); HEMOGLOBIN 9.5 g/dL (12.0-15.5); LYMPH # 1.8 x10^3/uL (1.0-4.8); LYMPH % 21 % (24-48); MEAN CORPUSCULAR HEMOGLOBIN 27 pg (25-35); MEAN CORPUSCULAR HGB CONC 32 g/dL (31-37); MEAN CORPUSCULAR VOLUME 85 fL (79-100); MONO # 0.4 x10^3/uL (0.0-1.1); MONO % 5 % (0-9); NEUT # 6.2 x10^3uL (1.8-7.7); NEUT % 72 % (31-73); PLATELET COUNT 225 x10^3/uL (140-400); RED BLOOD COUNT 3.54 x10^6/uL (3.50-5.40); RED CELL DISTRIBUTION WIDTH 16.9 % (11.5-14.5); WHITE BLOOD COUNT 8.6 x10^3/uL (4.0-11.0)
[2019-01-29 11:10] LABS: CREATININE 2.3 mg/dL (0.6-1.0); GFR 20.8; POTASSIUM 4.5 mmol/L (3.5-5.1)
[2019-01-29 11:16] LABS: ALBUMIN 3.7 g/dL (3.4-5.0); ALBUMIN/GLOBULIN RATIO 0.7 (1.0-1.7); TOTAL BILIRUBIN 0.2 mg/dL (0.2-1.0); TOTAL PROTEIN 9.3 g/dL (6.4-8.2)
[2019-01-29 11:35] LABS: BILIRUBIN,URINE NEGATIVE (NEG); CLARITY,URINE TURBID; COLOR,URINE YELLOW; NITRITE,URINE POSITIVE (NEG); PH,URINE 7.5; PROTEIN,URINE 100 mg/dL (NEG-TRACE); UROBILINOGEN,URINE 0.2 mg/dL (0.2 mg/dL)
[2019-01-29 11:42] LABS: AMPHETAMINE/METHAMPHETAMINE NEG (NEG); BARBITURATES NEG (NEG); BENZODIAZEPINES NEG (NEG); CANNABINOIDS NEG (NEG); COCAINE NEG (NEG); METHADONE NEG (NEG); OPIATES NEG (NEG); PHENCYCLIDINE NEG (NEG)
[2019-01-29 11:44] LABS: BACTERIA,URINE MANY /HPF (0-FEW); RBC,URINE FOBS /HPF (0-2); WBC,URINE TNTC /HPF (0-4)
--- NOTE | 2019-01-29 12:25 | RAD ---
CT Abdomen and Pelvis without contrast History: Abdominal pain, nausea and vomiting Technique: Noncontrast CT imaging was performed of the abdomen and pelvis. Multiplanar images are reviewed. Exposure: One or more of the following individualized dose reduction techniques were utilized for this examination: 1. Automated exposure control 2. Adjustment of the mA and/or kV according to patient size 3. Use of iterative reconstruction technique. Comparison: December 16, 2018; August 19, 2018 Findings: Not fully evaluated, there is again moderate size hiatal hernia containing superior aspect of the stomach. There is coronary calcification. Accurate evaluation of abdominal visceral organs is limited without intravenous contrast. There is no new obvious focal abnormality of the liver, spleen, pancreas, gallbladder. There is no hydronephrosis of either kidney. Calcifications in the right renal hilar region are likely vascular in etiology. There is prominent atherosclerotic calcification of the abdominal aorta, also involvement of the iliac arteries. Evaluation of bowel somewhat limited without oral contrast. Bowel is not significantly dilated. Normal appendix is visualized. There is retained stool in segments of the colon. There is no free air or free fluid. There is distention of the urinary bladder. There is persistent somewhat bilobed appearing focus of cystic density in the left adnexal region about 4.7 cm x 3 cm in axial oblique dimensions by about 3.1 cm cc, previous August 2018 exam about 4.3 cm x 2.9 cm x 3.4 cm. There is again grade 1 anterior spondylolisthesis L4-5, multilevel facet degenerative change. There is again superior T12 compression fracture with osseous retropulsion superiorly. Impression: 1. There is no CT evidence of acute appendicitis. There is some variable retained stool in the colon. 2. There is distention of urinary bladder. 3. There is bilobed or septated cystic lesion of the left adnexa as seen previously, considerations of complex cyst or cystic mass. 4. There is again moderate size hiatal hernia. Electronically signed by: Nicholas De La Garza MD (01/29/2019 12:22 PM) [id number]
[2019-01-29] MEDS ORDERED: cefTRIAXone IV Push 1 GM VIAL. IVP ONE (12:30)
[2019-01-29] MEDS ORDERED: ONDA4TAB12 PO (13:56)
[2019-01-29] MEDS ORDERED: CEPH500T PO (13:56)
[2019-01-29 14:30] VITALS: BP 158/100
== END 2019-01-29 14:58 | disposition home or self-care (01) ==
LOC: ER 10:09
DX: N39.0 Urinary tract infection, site not specified (principal); R11.2 Nausea with vomiting, unspecified; G89.29 Other chronic pain; E10.9 Type 1 diabetes mellitus without complications; J45.909 Unspecified asthma, uncomplicated; K21.9 Gastro-esophageal reflux disease without esophagitis; Z90.710 Acquired absence of both cervix and uterus; Z90.89 Acquired absence of other organs; Z91.018 Allergy to other foods; Z91.048 Other nonmedicinal substance allergy status; Z88.7 Allergy status to serum and vaccine
CPT/HCPCS: 36415; 74176; 80053; 80307; 81001; 83690; 85025; 87086; 96361; 96374; 96375; 99285; G0480; J0696; J2405; J3490; J7030; 87186